=== PATIENT | female | born 1970 | race African-American/Black ===

== ENCOUNTER → 2017-06-02 | Day surgery (SDC) | payer OTHER ==
--- NOTE | 2017-06-02 11:14 | RAD REPORT ---
EXAM DESCRIPTION: US - AXILLA ONLY - 06/02/2017 10:21 am CLINICAL HISTORY: C50.812 COMPARISON: CT chest May 20, 2017. FINDINGS: Sonographic evaluation of the left axilla was performed to evaluate two small axillary lym ph nodes seen on the recent CT study. The patient had pain induced limited range of motion at the shoulder joint due to the recent surgery. This limited access to the axilla. Two small lymph nodes were seen near the lateral margin of the pe ctoralis musculature. Both lymph nodes showed a short axis dimension of 4-5 mm or less. Fatty lymph n ode alisha filled the majority of the volume and there was uniform thickness to the lymph node cortex. While the lymph nodes could be visualized. The patient has limited range of motion significantly limi koby access. The lymph nodes show benign imaging characteristics. Findings from the study were discussed with the patient at the time of the study. The patient request ed findings be relayed to Dr. oseguera on as well. IMPRESSION: 1. Two benign appearing left axillary lymph nodes were identifiable believed to be the c orrelates to the recent CT chest finding. 2. Given the benign appearance and patient limited range of motion, it was felt the lymph nodes could not be safely subjected to core biopsy.
== END ==
LOC: DS 09:34
PROVIDERS: ATTEND Radiology Radiation Oncology
DX: C50.812 Malignant neoplasm of overlapping sites of left female breast (principal); Z53.9 Procedure and treatment not carried out, unspecified reason
CPT/HCPCS: 76882

== ENCOUNTER 2017-11-23 17:33 | Emergency (ER) | payer OTHER ==
[2017-11-23] MEDS ORDERED: LORazepam 2 MG/ML VIAL ONE (18:03)
[2017-11-23 18:21] LABS: Absolute Lymphocytes (CBC) 0.6 K/uL (0.7-4.9); Absolute Monocytes 0.4 K/uL (0.1-1.3); Absolute Neutrophil 5.1 K/uL (1.8-8.0); Basophils % 0.2 % (0-1.3); Eosinophils % 0.4 % (0-4.4); Hematocrit 28.9 % (36.0-45.0); Lymphocytes % 10.1 % (15.3-44.8); MCH 26.4 pg (27.0-35.0); MPV 9.2 fL (7.6-11.3); Monocytes % 6.3 % (3.3-12.3); RBC Red Blood Cell Count 3.61 M/uL (3.86-4.86)
[2017-11-23 18:28] LABS: BUN Blood Urea Nitrogen 8 mg/dL (7-18); Bicarbonate 31 mmol/L (21-32); Glucose Level 113 mg/dL (74-106); Potassium 3.1 mmol/L (3.5-5.1); Sodium Level 143 mmol/L (136-145)
--- NOTE | 2017-11-23 19:21 | RAD REPORT ---
EXAM DESCRIPTION: CT - Chest For Pe Angio - 11/23/2017 7:11 pm CLINICAL HISTORY: Chest pain. DYSPNEA COMPARISON: Rad Therapy Fld Place Chest dated 06/18/2017 TECHNIQUE: CT angiogram of the pulmonary arteries was performed with MIP. All CT scans are performed using dose optimization technique as appropriate and may include automated exposure control or mA/KV adjustment according to patient size. FINDINGS: No evidence of pulmonary thromboembolism. No acute aortic finding demonstrated. The lungs are clear. Respiratory motion artifact is present. No significant pericardial or pleural fluid. No concerning bony finding. IMPRESSION: No evidence of pulmonary thromboembolism. No acute lung findings.
[2017-11-23] MEDS ORDERED: POTASSIUM CL SA 10 MEQ TAB PO ONE (19:34)
--- NOTE | 2017-11-23 20:01 | ER ---
Nurse's Notes [facility] Name: Ena Vega Age: 47 yrs Sex: Female : 1970 Arrival Date: 11/23/2017 Time: 17:34 Bed 6 Private MD: Diagnosis: Anxiety disorder, unspecified;Hyperventilation Presentation: 11/23 17:40 Presenting complaint: Patient states: I feel like i cant catch my breath, I recently sg had radiation for breast cancer and my left breast removed, i dont know if this is related to that or not. Transition of care: patient was not received from another setting of care. Onset of symptoms was November 23, 2017. Risk Assessment: Do you want to hurt yourself or someone else? Patient reports no desire to harm self or others. Care prior to arrival: None. 17:40 Method Of Arrival: Ambulatory 17:46 Acuity: ROLANDO 3 iw 18:08 Initial Sepsis Screen: Does the patient meet any 2 criteria? No. Patient's initial la1 sepsis screen is negative. Does the patient have a suspected source of infection? No. Patient's initial sepsis screen is negative. Triage Assessment: 18:41 General: Appears in no apparent distress. Respiratory: Reports. la1 Historical: - Allergies: 17:50 No Known Allergies; sg - PMHx: 17:50 Cancer, Breast; sg - PSHx: 17:50 Mastectomy, Left; sg - Immunization history:: Adult Immunizations up to date. - Social history:: Smoking status: Patient/guardian denies using tobacco. - Ebola Screening: : Patient negative for fever greater than or equal to 101.5 degrees Fahrenheit, and additional compatible Ebola Virus Disease symptoms Patient denies exposure to infectious person Patient denies travel to an Ebola-affected area in the 21 days before illness onset No symptoms or risks identified at this time. Screenin:07 Abuse screen: Denies threats or abuse. Nutritional screening: No deficits noted. la1 Tuberculosis screening: No symptoms or risk factors identified. Fall Risk None identified. Assessment: 18:07 General: Behavior is anxious. Pain: Denies pain. Neuro: Level of Consciousness is la1 awake, alert, obeys commands, Oriented to person, place, time, situation. Cardiovascular: Heart tones S1 S2 present Capillary refill < 3 seconds Patient's skin is warm and dry. Respiratory: Airway is patent Trachea midline Respiratory effort is even, unlabored, Respiratory pattern is regular, symmetrical, Breath sounds are clear bilaterally. GI: Abdomen is round non-distended. : No signs and/or symptoms were reported regarding the genitourinary system. 18:41 Reassessment: Patient is alert, oriented x 3, equal unlabored respirations, skin la1 warm/dry/pink. Patient states feeling better. Patient states symptoms have improved. Cardiovascular: Rhythm is regular. 19:45 General: Behavior is calm, cooperative, appropriate for age. Pain: Denies pain. Neuro: ea Level of Consciousness is awake, alert, obeys commands, Oriented to person, place, time, situation. Cardiovascular: Heart tones S1 S2 present Patient's skin is warm and dry. Respiratory: Airway is patent Respiratory effort is even, unlabored, Respiratory pattern is regular, symmetrical, Breath sounds are clear bilaterally. : No signs and/or symptoms were reported regarding the genitourinary system. Derm: Skin is pink, warm \T\ dry. 20:10 General: Appears in no apparent distress. comfortable, Behavior is calm, cooperative, aj appropriate for age. Pain: Denies pain. Neuro: Level of Consciousness is awake, alert, obeys commands, Oriented to person, place, time, situation, Appropriate for age. Respiratory: Airway is patent Respiratory effort is even, unlabored, Respiratory pattern is regular, symmetrical. Derm: Skin is intact, is healthy with good turgor, Skin is pink, warm \T\ dry. normal. Vital Signs: 17:50 Pulse 92; Resp 22; Pulse Ox 100% ; Pain 0/10; sg 18:18 BP 155 / 78; Pulse 84; Resp 20; Temp 97.6(TE); Pulse Ox 98% on 2 lpm NC; la1 19:57 BP 132 / 82; Pulse 74; Resp 16; Pulse Ox 98% on R/A; mt ED Course: 17:34 Patient arrived in ED. mr 17:39 Yash Flores RN is Primary Nurse. la1 17:46 Triage completed. iw 17:50 Arm band placed on. sg 17:51 Sandrita Whalen FNP-C is [facility]. kb 17:51 Ashwin Adams MD is Attending Physician. kb 17:51 Patient pt placed on NC at 2 lpm for comfort, pt reports improved respirations. sg 18:06 Inserted saline lock: 22 gauge in right wrist, using aseptic technique. Blood collected.la1 18:08 Call light in reach. Side rails up X 1. la1 18:41 Inserted saline lock: 18 gauge in right antecubital area, using aseptic technique. la1 19:11 CT Chest For PE Angio In Process Unspecified. EDMS 20:10 No provider procedures requiring assistance completed. IV discontinued, intact, aj bleeding controlled, No redness/swelling at site. Pressure dressing applied. Administered Medications: 18:10 Not Given (Other Intervention Used): Ativan 1 mg IM once la1 18:10 Drug: Ativan 1 mg Route: IVP; Site: right wrist; la1 18:42 Follow up: Response: Anxiety decreased la1 19:29 Drug: Potassium Chloride 40 mEq Route: PO; ea 19:53 Follow up: Response: No adverse reaction ea Outcome: 20:00 Discharge ordered by MD. kb 20:10 Discharged to home ambulatory, with family. aj 20:10 Condition: good 20:10 Discharge instructions given to patient, family, Instructed on discharge instructions, follow up and referral plans. Demonstrated understanding of instructions, follow-up care. 20:12 Patient left the ED. aj Signatures: Dispatcher [employer] EDMS Sandrita Whalen, CHILD CARE GROUP LEADER-C CHILD CARE GROUP LEADER-Haseeb Luna, RN Lidia Stephenson, RN Mckenna Davis Irene RN Yash Zhu RN RN la1 Thompson, Moriah mt Antunez, Elena, RN RN ea Corrections: (The following items were deleted from the chart) 18:18 18:18 BP 155 / 78; Pulse 84bpm; Resp 20bpm; Pulse Ox 98% 2 lpm Nasal Cannula; la1 la1
--- NOTE | 2017-11-23 20:01 | EDPHYS ---
Physician Documentation [facility] Name: Ena Vega Age: 47 yrs Sex: Female : 1970 Arrival Date: 11/23/2017 Time: 17:34 Bed 6 Private MD: ED Physician Ashwin Adams HPI: 11/23 19:45 This 47 yrs old Black Female presents to ER via Ambulatory with complaints of Shortness kb Of Breath. 19:45 The patient has shortness of breath at rest. Onset: The symptoms/episode began/occurred kb just prior to arrival. Duration: The symptoms are continuous. The patient's shortness of breath has no apparent modifying factors. Associated signs and symptoms: The patient has no apparent associated signs or symptoms. Severity of symptoms: At their worst the symptoms were moderate in the emergency department the symptoms are unchanged. The patient has experienced similar episodes in the past, a few times. The patient has not recently seen a physician. Pt states "I can't breathe." Appears very anxious. Pt reports history of anxiety. Recent breast cancer with mastectomy. Historical: - Allergies: 17:50 No Known Allergies; sg - PMHx: 17:50 Cancer, Breast; sg - PSHx: 17:50 Mastectomy, Left; sg - Immunization history:: Adult Immunizations up to date. - Social history:: Smoking status: Patient/guardian denies using tobacco. - Ebola Screening: : Patient negative for fever greater than or equal to 101.5 degrees Fahrenheit, and additional compatible Ebola Virus Disease symptoms Patient denies exposure to infectious person Patient denies travel to an Ebola-affected area in the 21 days before illness onset No symptoms or risks identified at this time. ROS: 19:45 Constitutional: Negative for fever, chills, and weight loss, Cardiovascular: Negative kb for chest pain, palpitations, and edema, Abdomen/GI: Negative for abdominal pain, nausea, vomiting, diarrhea, and constipation, Back: Negative for injury and pain, : Negative for injury, bleeding, discharge, and swelling, MS/Extremity: Negative for injury and deformity, Skin: Negative for injury, rash, and discoloration, Neuro: Negative for headache, weakness, numbness, tingling, and seizure. 19:45 Respiratory: Positive for shortness of breath, Negative for cough, dyspnea on exertion, hemoptysis, orthopnea, pleurisy, sputum production, wheezing. 19:45 Psych: Positive for anxiety. Exam: 19:50 Head/Face: Normocephalic, atraumatic. Chest/axilla: Normal chest wall appearance and kb motion. Nontender with no deformity. No lesions are appreciated. Cardiovascular: Regular rate and rhythm with a normal S1 and S2. No gallops, murmurs, or rubs. Normal PMI, no JVD. No pulse deficits. Abdomen/GI: Soft, non-tender, with normal bowel sounds. No distension or tympany. No guarding or rebound. No evidence of tenderness throughout. Skin: Warm, dry with normal turgor. Normal color with no rashes, no lesions, and no evidence of cellulitis. MS/ Extremity: Pulses equal, no cyanosis. Neurovascular intact. Full, normal range of motion. Neuro: Awake and alert, GCS 15, oriented to person, place, time, and situation. Cranial nerves II-XII grossly intact. Motor strength 5/5 in all extremities. Sensory grossly intact. Cerebellar exam normal. Normal gait. 19:50 Constitutional: The patient appears alert, awake, anxious. 19:50 Respiratory: the patient does not display signs of respiratory distress, Respirations: tachypnea, Breath sounds: are clear throughout. Vital Signs: 17:50 Pulse 92; Resp 22; Pulse Ox 100% ; Pain 0/10; sg 18:18 BP 155 / 78; Pulse 84; Resp 20; Temp 97.6(TE); Pulse Ox 98% on 2 lpm NC; la1 19:57 BP 132 / 82; Pulse 74; Resp 16; Pulse Ox 98% on R/A; mt MDM: 17:51 Patient medically screened. kb 19:49 Data reviewed: vital signs, nurses notes. Data interpreted: Pulse oximetry: on room air kb is 98 %. Interpretation: normal. Counseling: I had a detailed discussion with the patient and/or guardian regarding: the historical points, exam findings, and any diagnostic results supporting the discharge/admit diagnosis, lab results, radiology results, the need for outpatient follow up, a family practitioner, to return to the emergency department if symptoms worsen or persist or if there are any questions or concerns that arise at home. 20:01 Response to treatment: the patient's symptoms have resolved after treatment, the kb patient is not short of breath. 11/23 17:56 Order name: CBC with Diff; Complete Time: 18:26 kb 11/23 17:56 Order name: Basic Metabolic Panel; Complete Time: 18:29 kb 11/23 19:44 Order name: Urine Dipstick--Ancillary (enter results) ms 11/23 19:44 Order name: Urine --Ancillary (enter results) ms 11/23 19:44 Order name: Urine Dipstick-Ancillary EDMS 11/23 19:44 Order name: Urine --Ancillary EDMS 11/23 17:56 Order name: IV Start; Complete Time: 18:10 kb 11/23 17:57 Order name: CT Chest For PE Angio; Complete Time: 19:33 kb Administered Medications: 18:10 Not Given (Other Intervention Used): Ativan 1 mg IM once la1 18:10 Drug: Ativan 1 mg Route: IVP; Site: right wrist; la1 18:42 Follow up: Response: Anxiety decreased la1 19:29 Drug: Potassium Chloride 40 mEq Route: PO; ea 19:53 Follow up: Response: No adverse reaction ea Disposition: 11/23/17 20:00 Discharged to Home. Impression: Anxiety disorder, unspecified, Hyperventilation. - Condition is Stable. - Discharge Instructions: Panic Attacks, [id number]. - Medication Reconciliation Form, Thank You Letter, Antibiotic Education, Prescription Opioid Use form. - Follow up: Private Physician; When: 2 - 3 days; Reason: Recheck today's complaints, Continuance of care, Re-evaluation by your physician. Follow up: Emergency Department; When: As needed; Reason: Worsening of condition. Addendum: 12/01/2017 16:39 Co-signature as Attending Physician, Ashwin Adams MD. g s Signatures: Dispatcher [employer] EDMS Sandrita Whalen, CROWN POUNCER-C CROWN POUNCER-Ckb Haseeb Blackmon, RN Lidia Stephenson RN Yash Loyd RN RN la1 Antunez, Elena, RN RN ea Starr, Gregory, MD MD gs Corrections: (The following items were deleted from the chart) 11/23 20:12 20:00 11/23/2017 20:00 Discharged to Home. Impression: Anxiety disorder, unspecified; aj Hyperventilation. Condition is Stable. Forms are Medication Reconciliation Form, Thank You Letter, Antibiotic Education, Prescription Opioid Use. Follow up: Private Physician; When: 2 - 3 days; Reason: Recheck today's complaints, Continuance of care, Re-evaluation by your physician. Follow up: Emergency Department; When: As needed; Reason: Worsening of condition. kb
[2017-11-23 20:30] LABS: Urine Blood NEGATIVE (NEG); Urine Glucose NEGATIVE (NEG); Urine Protein 1+ (NEG); Urine Specific Gravity 1.015 (1.005-1.030); Urine pH >8.5 (5.0-7.0)
== END 2017-11-23 20:12 | disposition home or self-care (01) ==
LOC: ER 17:33
DX: R06.4 Hyperventilation (principal); Z85.3 Personal history of malignant neoplasm of breast; Z90.12 Acquired absence of left breast and nipple
CPT/HCPCS: 36415; 71275; 80048; 81003; 81025; 85025; 96374; 99284; Q9967

== ENCOUNTER 2017-11-24 06:49 | Observation (INO) | payer OTHER ==
[2017-11-24] MEDS ORDERED: hydrOXYzine HCl 50 MG/ML VIAL IM ONE (07:53)
[2017-11-24 07:56] LABS: Protime INR 1.15
[2017-11-24 08:32] LABS: Absolute Lymphocytes (CBC) 0.7 K/uL (0.7-4.9); Absolute Monocytes 0.4 K/uL (0.1-1.3); Absolute Neutrophil 3.7 K/uL (1.8-8.0); Basophils % 0.7 % (0-1.3); Eosinophils % 0.9 % (0-4.4); Hematocrit 29.6 % (36.0-45.0); Lymphocytes % 13.8 % (15.3-44.8); MCH 26.3 pg (27.0-35.0); MCV 80.7 fL (80-100); MPV 9.4 fL (7.6-11.3); Monocytes % 8.4 % (3.3-12.3); RBC Red Blood Cell Count 3.67 M/uL (3.86-4.86)
[2017-11-24 08:52] LABS: ALT/SGPT 22 U/L (12-78); AST/SGOT 26 U/L (15-37); Alkaline Phosphatase 62 U/L (45-117); BUN Blood Urea Nitrogen 6 mg/dL (7-18); Bicarbonate 22 mmol/L (21-32); Bilirubin Direct 0.1 mg/dL (0-0.2); Bilirubin Total 0.4 mg/dL (0.2-1.0); Glucose Level 89 mg/dL (74-106); NT PRO-BNP 135 pg/mL (<125); Potassium 3.9 mmol/L (3.5-5.1); Protein, Total 8.3 g/dL (6.4-8.2); Sodium Level 142 mmol/L (136-145); Troponin (Emerg Dept Use Only) 0.04 ng/mL (0.0-0.045)
--- NOTE | 2017-11-24 09:43 | RAD REPORT ---
EXAM DESCRIPTION: RAD - Chest Single View - 11/24/2017 9:21 am CLINICAL HISTORY: SOB Chest pain. COMPARISON: Chest Single View dated 04/24/2017; Chest For Pe Angio dated 11/23/2017 FINDINGS: Portable technique limits examination quality. The lungs are grossly clear. The heart is normal in size. No displaced fractures. IMPRESSION: No acute intrathoracic process suspected.
--- NOTE | 2017-11-24 10:41 | ER ---
Nurse's Notes [facility] Name: Ena Vega Age: 47 yrs Sex: Female : 1970 Arrival Date: 11/24/2017 Time: 06:49 Bed 19 Private MD: Diagnosis: Shortness of breath;Abnormal electrocardiogram [ECG] [EKG] Presentation: 11/24 06:56 Presenting complaint: Patient states: "I feel like I can't breathe again"; Patient lp1 states ER visit last night for same symptoms, states Ativan helped; Patient noted to be pacing, states she can't sit still. Transition of care: patient was not received from another setting of care. Onset of symptoms was November 24, 2017 at 03:30. Risk Assessment: Do you want to hurt yourself or someone else? Patient reports no desire to harm self or others. Initial Sepsis Screen: Does the patient meet any 2 criteria? No. Patient's initial sepsis screen is negative. Does the patient have a suspected source of infection? No. Patient's initial sepsis screen is negative. Care prior to arrival: None. 06:56 Method Of Arrival: Ambulatory lp1 06:56 Acuity: ROLANDO 3 lp1 Triage Assessment: 07:09 General: Appears in no apparent distress. uncomfortable, Behavior is calm, cooperative, hj appropriate for age. Pain: Denies pain. EENT: No signs and/or symptoms were reported regarding the EENT system. Neuro: Level of Consciousness is awake, alert, obeys commands, Oriented to person, place, time, situation, Appropriate for age. Cardiovascular: Capillary refill < 3 seconds Patient's skin is warm and dry. Respiratory: Reports labored breathing Onset: The symptoms/episode began/occurred yesterday, the patient has mild shortness of breath. GI: No signs and/or symptoms were reported involving the gastrointestinal system. : No signs and/or symptoms were reported regarding the genitourinary system. Derm: No signs and/or symptoms reported regarding the dermatologic system. Musculoskeletal: No signs and/or symptoms reported regarding the musculoskeletal system. COMPENSATION SPECIALIST: 07:11 LMP N/A - Irregular menses hj Historical: - Allergies: 06:59 No Known Allergies; lp1 - Home Meds: 06:59 None [Active]; lp1 - PMHx: 06:59 Cancer, Breast; lp1 - Immunization history:: Adult Immunizations up to date. - Social history:: Smoking status: Patient/guardian denies using tobacco. - Ebola Screening: : No symptoms or risks identified at this time. Screenin:59 Abuse screen: Denies threats or abuse. Denies injuries from another. Nutritional lp1 screening: No deficits noted. Tuberculosis screening: No symptoms or risk factors identified. Fall Risk None identified. Assessment: 07:00 Reassessment: see triage for assessment;. hj 07:09 Pain: Denies pain. Cardiovascular: Rhythm is regular. Respiratory: Airway is patent hj Respiratory effort is even, unlabored, Respiratory pattern is regular, symmetrical, Breath sounds are clear bilaterally. 08:44 Reassessment: Patient and/or family updated on plan of care and expected duration. Pain hj level reassessed. Patient is alert, oriented x 3, equal unlabored respirations, skin warm/dry/pink. after the dose of hydroxyzine; Patient states feeling better. Patient states symptoms have improved. 09:21 Reassessment: Patient and/or family updated on plan of care and expected duration. Pain hj level reassessed. Patient is alert, oriented x 3, equal unlabored respirations, skin warm/dry/pink. awaiting XRAY results';. 10:10 Reassessment: Patient and/or family updated on plan of care and expected duration. Pain hj level reassessed. Patient is alert, oriented x 3, equal unlabored respirations, skin warm/dry/pink. Patient states feeling better. Patient states symptoms have improved. 11:17 Reassessment: Patient and/or family updated on plan of care and expected duration. Pain hj level reassessed. Patient is alert, oriented x 3, equal unlabored respirations, skin warm/dry/pink. awaiting for room placement; requested ROHITH Perry to start IV using US;. 12:13 Reassessment: 18g R EJ;. hj Vital Signs: 06:58 BP 156 / 89; Pulse 105; Resp 22; Temp 98.4(O); Pulse Ox 100% on R/A; Weight 74.84 kg; lp1 Height 5 ft. 5 in. (165.10 cm); 07:30 BP 157 / 90; Pulse 100; Resp 18; Pulse Ox 100% on R/A; hj 08:45 BP 137 / 82; Pulse 62; Resp 18; Pulse Ox 100% on R/A; hj 09:22 BP 131 / 75; Pulse 65; Resp 18; Pulse Ox 100% on R/A; hj 10:30 BP 130 / 74; Pulse 66; Resp 18; Pulse Ox 100% on R/A; hj 11:18 BP 134 / 72; Pulse 65; Resp 18; Pulse Ox 100% on R/A; hj 12:14 BP 135 / 70; Pulse 67; Resp 18; Pulse Ox 100% on R/A; hj 06:58 Body Mass Index 27.46 (74.84 kg, 165.10 cm) lp1 ED Course: 06:49 Patient arrived in ED. ds1 06:51 Orlando Yang PA is PHCP. jr8 06:51 Nacho Hendricks MD is Attending Physician. jr8 06:58 Triage completed. lp1 06:58 Arm band placed on left wrist. lp1 07:00 Atrhur Bridges RN is Primary Nurse. hj 07:00 Report received from MIKIE Castrejon. hj 07:10 Patient has correct armband on for positive identification. Bed in low position. Call hj light in reach. Side rails up X 1. Adult w/ patient. 07:55 EKG done, by thermoplastic technician. reviewed by Orlando NEWBERRY. at1 08:06 Radiology exam delayed due to IV insertion attempt and/or patient not having ls3 appropriate IV at this time. 09:22 XRAY Chest (1 view) In Process Unspecified. EDMS 10:40 Craidad Rios MD is Hospitalizing Provider. jr8 12:14 Inserted saline lock: 18 gauge in right EJ, using aseptic technique. ,using aseptic hj technique. ROHITH Yang. 12:24 No provider procedures requiring assistance completed. Patient admitted, IV remains in hj place. intact. Administered Medications: 07:29 Not Given (Physician Discretion): Ativan 1 mg IVP once jr8 07:30 CANCELLED (Physician Discretion): Benadryl 12.5 mg IVP once jr8 07:55 Not Given (not avaialble): Benadryl 25 mg IVP once hj 07:55 Drug: hydrOXYzine 25 mg Route: PO; hj 09:46 Follow up: Response: No adverse reaction; Anxiety decreased hj 12:21 Not Given (Patient Refused): Ativan 0.5 mg IVP once hj Outcome: 10:41 Decision to Hospitalize by Provider. annika 12:24 Admitted to Med/surg accompanied by nurse, family with patient, via wheelchair, room hj 205, with chart, Report called to MIKIE Booker 12:24 Condition: stable 12:24 Instructed on the need for admit, Demonstrated understanding of instructions. 12:46 Patient left the ED. Signatures: Dispatcher [employer] EDNH Angelique Parsons ds1 Eli Bynum, RN RN lp1 Orlando Yang, PA PA jr8 Lidia Vargas, oil well perforator operator EKG Tat1 Arthur Bridges RN RN Alirio Quintero ls3
--- NOTE | 2017-11-24 10:42 | EDPHYS ---
Physician Documentation [facility] Name: Ena Vega Age: 47 yrs Sex: Female : 1970 Arrival Date: 11/24/2017 Time: 06:49 Bed 19 Private MD: ED Physician Nacho Hendricks HPI: 11/24 08:02 This 47 yrs old Black Female presents to ER via Ambulatory with complaints of Breathing jr8 Difficulty. 08:02 The patient has shortness of breath at rest. Onset: The symptoms/episode began/occurred jr8 acutely, yesterday. Duration: The symptoms are continuous. The patient's shortness of breath has no apparent modifying factors. Associated signs and symptoms: The patient has no apparent associated signs or symptoms. Severity of symptoms: At their worst the symptoms were moderate in the emergency department the symptoms are unchanged. The patient has not experienced similar symptoms in the past. The patient has been recently seen by a physician:. Patient seen yesterday in ED for shortness of breath. Stated that it woke her up all of a sudden. Recent breast cancer history with surgery and radiation. Blood work and CT done with no acute finding. Ativan was given in which she stated that it help a lot. After it wore off started to have shortness of breath again. Only other medication taken at home was promethazine . 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 - Social history:: Smoking status: Patient/guardian denies using tobacco. - Ebola Screening: : No symptoms or risks identified at this time. ROS: 08:02 Eyes: Negative for injury, pain, redness, and discharge, ENT: Negative for injury, jr8 pain, and discharge, Neck: Negative for injury, pain, and swelling, Cardiovascular: Negative for chest pain, palpitations, and edema, Abdomen/GI: Negative for abdominal pain, nausea, vomiting, diarrhea, and constipation, Back: Negative for injury and pain, MS/Extremity: Negative for injury and deformity, Skin: Negative for injury, rash, and discoloration, Neuro: Negative for headache, weakness, numbness, tingling, and seizure. 08:02 Respiratory: Positive for shortness of breath, Negative for cough, dyspnea on exertion, orthopnea, sputum production, wheezing. Exam: 08:02 Eyes: Pupils equal round and reactive to light, extra-ocular motions intact. Lids and jr8 lashes normal. Conjunctiva and sclera are non-icteric and not injected. Cornea within normal limits. Periorbital areas with no swelling, redness, or edema. ENT: Nares patent. No nasal discharge, no septal abnormalities noted. Tympanic membranes are normal and external auditory canals are clear. Oropharynx with no redness, swelling, or masses, exudates, or evidence of obstruction, uvula midline. Mucous membranes moist. Neck: Trachea midline, no thyromegaly or masses palpated, and no cervical lymphadenopathy. Supple, full range of motion without nuchal rigidity, or vertebral point tenderness. No Meningismus. Cardiovascular: Regular rate and rhythm with a normal S1 and S2. No gallops, murmurs, or rubs. Normal PMI, no JVD. No pulse deficits. Abdomen/GI: Soft, non-tender, with normal bowel sounds. No distension or tympany. No guarding or rebound. No evidence of tenderness throughout. Back: No spinal tenderness. No costovertebral tenderness. Full range of motion. Skin: Warm, dry with normal turgor. Normal color with no rashes, no lesions, and no evidence of cellulitis. MS/ Extremity: Pulses equal, no cyanosis. Neurovascular intact. Full, normal range of motion. Neuro: Awake and alert, GCS 15, oriented to person, place, time, and situation. Cranial nerves II-XII grossly intact. Motor strength 5/5 in all extremities. Sensory grossly intact. Cerebellar exam normal. Normal gait. 08:02 Respiratory: mild respiratory distress is noted, Respirations: tachypnea, that is mild, Breath sounds: are clear throughout, no bronchial sounds, no decreased breath sounds, no rales, rhonchi, no stridor, no wheezing. 08:06 ECG was reviewed by the Attending Physician. [facility], [place] Vital Signs: 06:58 BP 156 / 89; Pulse 105; Resp 22; Temp 98.4(O); Pulse Ox 100% on R/A; Weight 74.84 kg; lp1 Height 5 ft. 5 in. (165.10 cm); 07:30 BP 157 / 90; Pulse 100; Resp 18; Pulse Ox 100% on R/A; hj 08:45 BP 137 / 82; Pulse 62; Resp 18; Pulse Ox 100% on R/A; hj 09:22 BP 131 / 75; Pulse 65; Resp 18; Pulse Ox 100% on R/A; hj 10:30 BP 130 / 74; Pulse 66; Resp 18; Pulse Ox 100% on R/A; hj 11:18 BP 134 / 72; Pulse 65; Resp 18; Pulse Ox 100% on R/A; hj 12:14 BP 135 / 70; Pulse 67; Resp 18; Pulse Ox 100% on R/A; hj 06:58 Body Mass Index 27.46 (74.84 kg, 165.10 cm) lp1 MDM: 06:51 Patient medically screened. jr8 08:05 Differential diagnosis: Anemia Anxiety Reaction CHF exacerbation, Myocardial Infarction jr8 pneumonia, Pneumothorax pulmonary edema, Pulmonary Embolism Sepsis. Data reviewed: vital signs, nurses notes, old medical records, CT PE Negative. Mild anemia lab test result(s), EKG, radiologic studies, plain films. Data interpreted: Pulse oximetry: on room air is 100 %. Interpretation: normal. 10:18 ED course: abnormal ECG findings. Discussed this with hospitalist to see if we can jr8 either get her immediate cardiology consult or be admitted for r/o. Dr. Rios will see her and call cardiology. Patient only with shortness of breath which has resolved after medication. No chest pain . 10:40 ED course: Will put in and r/o after talking with Dr. Rios and her seeing patient . 11/24 07:25 Order name: Basic Metabolic Panel; Complete Time: 09:04 11/24 07:25 Order name: CBC with Diff; Complete Time: 08:48 11/24 07:25 Order name: LFT's; Complete Time: 09:04 11/24 07:25 Order name: Magnesium; Complete Time: 09:04 11/24 07:25 Order name: NT PRO-BNP; Complete Time: 09:04 11/24 07:25 Order name: PT-INR; Complete Time: 08:02 11/24 07:25 Order name: Troponin (emerg Dept Use Only); Complete Time: 09:04 11/24 07:25 Order name: XRAY Chest (1 view); Complete Time: 09:47 11/24 07:25 Order name: EKG; Complete Time: :11/24 07:25 Order name: Cardiac monitoring; Complete Time: 07:25 11/24 07:25 Order name: EKG - Nurse/Tech; Complete Time: 08:10 11/24 07:25 Order name: IV Saline Lock; Complete Time: 12:21 11/24 07:25 Order name: Labs collected and sent; Complete Time: 08:11/24 07:25 Order name: O2 Per Protocol; Complete Time: :11/24 07:25 Order name: O2 Sat Monitoring; Complete Time: EC:06 Rate is 75 beats/min. Rhythm is regular, Normal Sinus Rhythm. QRS [place] is Normal. [place] jr8 interval is normal at 156 msec. QRS interval is normal at 76 msec. QT interval is normal at 437 msec. No Q waves. T waves are Inverted in leads V1, V2, V3, V4. No ST changes noted. Clinical impression: NSR w/ Non-specific ST/T Changes. Interpreted by me. Reviewed by me. Administered Medications: 07:29 Not Given (Physician Discretion): Ativan 1 mg IVP once jr8 07:30 CANCELLED (Physician Discretion): Benadryl 12.5 mg IVP once jr8 07:55 Not Given (not avaialble): Benadryl 25 mg IVP once 07:55 Drug: hydrOXYzine 25 mg Route: PO; 09:46 Follow up: Response: No adverse reaction; Anxiety decreased 12:21 Not Given (Patient Refused): Ativan 0.5 mg IVP once hj Disposition: 11/24/17 10:41 Hospitalization ordered by Caridad Rios for Observation. Preliminary diagnosis are Shortness of breath, Abnormal electrocardiogram [ECG] [EKG]. - Bed requested for Telemetry/MedSurg (observation). - Status is Observation. hj - Condition is Stable. - Problem is new. - Symptoms have improved. UTI on Admission? No Addendum: 11/26/2017 07:25 Co-signature as Attending Physician, Nacho Hendricks MD I agree with the assessment and c trejo plan of care. Signatures: Dispatcher [employer] Kinjal Lee RN RN dw Nacho Hendricks MD MD cha Pena, Laura RN RN lp1 Orlando Yang PA PA jr8 Arthur Bridges RN RN hj Corrections: (The following items were deleted from the chart) 11/24 07:30 07:29 Benadryl 12.5 mg IVP once ordered. jr8 jr8 11:42 10:41 Hospitalization Ordered by Caridad Rios MD for Observation. Preliminary dw diagnosis is Shortness of breath; Abnormal electrocardiogram [ECG] [EKG]. Bed requested for Telemetry/MedSurg (observation). Status is Observation. Condition is Stable. Problem is new. Symptoms have improved. UTI on Admission? No. jr8 12:46 11:42 11/24/2017 10:41 Hospitalization Ordered by Caridad Rios MD for Observation. hj Preliminary diagnosis is Shortness of breath; Abnormal electrocardiogram [ECG] [EKG]. Bed requested for Telemetry/MedSurg (observation). Status is Observation. Condition is Stable. Problem is new. Symptoms have improved. UTI on Admission? No. dw
[2017-11-24] MEDS ORDERED: ONDANSETRON 4 MG/2 ML VIAL IV PRN (12:57)
[2017-11-24] MEDS ORDERED: ACETAMINOPHEN 500 MG TAB PO PRN (12:57)
--- NOTE | 2017-11-24 13:15 | EKG ---
Test Date: 2017-11-24 Test Time: 07:44:35 Military Technician: DAMION MEASUREMENT RESULTS: Intervals: Rate: 75 MN: 156 QRSD: 76 QT: 392 QTc: 437 [place]: P: 54 MN: 156 QRS: 16 T: 96 INTERPRETIVE STATEMENTS: Normal sinus rhythm ST & T wave abnormality, consider anterolateral ischemia Abnormal ECG Compared to ECG 04/24/2017 23:02:20 Possible ischemia now present ST (T wave) deviation still present Electronically Signed On 11-24-17 13:14:53 CDT by Vance Eli
--- NOTE | 2017-11-24 14:57 | P.HP ---
Certification for Inpatient Patient admitted to: Observation With expected LOS: <2 Midnights Patient will require the following post-hospital care: None Practitioner: I am a practitioner with admitting privileges, knowledge of patient current condition, hospital course, and medical plan of care. Services: Services provided to patient in accordance with Admission requirements found in Title 42 Section 412.3 of the Code of Federal Regulations Patient History Date of Service: 11/24/17 Reason for admission: Dyspnea with chest discomfort History of Present Illness: This is a 47-year-old female with no significant past medical history who started having some discomfort in her chest last night and had and some shortness of breath as well. Patient stated that she came to the medication which helped her shortness of breath and she was discharged home under stable condition. However this morning patient started noticing that she was having some chest discomfort again this morning along with dyspnea and thus decided to come to the ER. All the lab work and imaging studies in the ER were within normal limits except the EKG was concerning was inversion of the T waves of in V1 to V3 leads. Which has been changed from her previous EKG. The patient thus was admitted for further workup Allergies No Known Allergies Allergy (Verified 04/30/17 14:39) Home medications list reviewed: Yes Home Medications: NK [No Home Meds] 11/24/17 - Past Medical/Surgical History Has patient received pneumonia vaccine in the past: Yes Diabetic: No -: Fibroadenoma left breast-benign -: breast biopsy left - Family History Family History: Reviewed- Non-Contributory - Family History Father -: Hypertension, Diabetes Mother -: Hypertension, Diabetes, Cancer - Social History Smoking Status: Never smoker Alcohol use: Yes CD- Drugs: No Caffeine use: No Place of Residence: Home Review of Systems 10-point ROS is otherwise unremarkable Physical Examination - Vital Signs Temperature: 98 F Blood Pressure: 127/76 Pulse: 65 Respirations: 18 Pulse Ox (%): 98 - Physical Exam General: Alert, In no apparent distress HEENT: Atraumatic, PERRLA, Mucous membr. moist/pink, EOMI, Sclerae nonicteric Neck: Supple, 2+ carotid pulse no bruit, No LAD, Without JVD or thyroid abnormality Respiratory: Clear to auscultation bilaterally, Normal air movement Cardiovascular: Regular rate/rhythm, Normal S1 S2 Gastrointestinal: Normal bowel sounds, No tenderness Musculoskeletal: No tenderness Integumentary: No rashes Neurological: Normal gait, Normal speech, Normal strength at 5/5 x4 extr, Normal tone, Normal affect Lymphatics: No axilla or inguinal lymphadenopathy - Studies Laboratory Data (last 24 hrs) 11/24/17 08:12: WBC 4.9 D, Hgb 9.6 L, Hct 29.6 L, Plt Count 262 11/24/17 08:12: Sodium 142, Potassium 3.9, BUN 6 L, Creatinine 0.70, Glucose 89 , Magnesium 2.0, Total Bilirubin 0.4, AST 26, ALT 22, Alkaline Phosphatase 62 11/24/17 07:40: PT 13.6 H, INR 1.15 Assessment and Plan - Problems (Diagnosis) (1) Chest pain Current Visit: Yes Status: Acute Plan: Atypical Chest discomfort. Most Likely Anxiety vs allergies -Will get Troponin x 2 and EKG -Will ECHO and stress -ACS R/O -ACS medication Qualifiers: Chest pain type: other chest pain Qualified Code(s): R07.89 - Other chest pain; R07.8 - Other chest pain (2) Breast cancer Current Visit: No Status: Chronic Qualifiers: Breast location: unspecified site of breast Estrogen receptor status: unspecified Patient sex: female Laterality: unspecified laterality Qualified Code(s): C50.919 - Malignant neoplasm of unspecified site of unspecified female breast Discharge Plan: Home Plan to discharge in: 48 Hours - Advance Directives Does patient have a Living Will: No Does patient have a Durable POA for Healthcare: No - Code Status/Comfort Care Code Status Assessed: Yes Critical Care: No
[2017-11-24] MEDS ORDERED: ALPRAZOLAM 0.25 MG TABLET PO ONE (21:31)
[2017-11-24 22:04] LABS: Urine Appearance CLEAR; Urine Bilirubin NEGATIVE (NEG); Urine Blood NEGATIVE (NEG); Urine Color YELLOW; Urine Glucose NEGATIVE (NEG); Urine Protein TRACE (NEG); Urine pH 6.5 (5.0-7.0)
[2017-11-24 23:24] LABS: Urine Microscopic Reflex ORDER UMIC
[2017-11-24 23:50] LABS: Urine Bacteria 20-50 /HPF (<20); Urine Culture Reflex Order REFLEXED; Urine Mucus 2+ /HPF (NONE SEEN); Urine RBC <5 /HPF (NONE SEEN)
[2017-11-25 05:31] LABS: BUN Blood Urea Nitrogen 9 mg/dL (7-18); Bicarbonate 23 mmol/L (21-32); Glucose Level 86 mg/dL (74-106); Potassium 3.5 mmol/L (3.5-5.1); Sodium Level 141 mmol/L (136-145)
[2017-11-25 05:51] LABS: Absolute Lymphocytes (CBC) 0.7 K/uL (0.7-4.9); Absolute Monocytes 0.3 K/uL (0.1-1.3); Absolute Neutrophil 1.2 K/uL (1.8-8.0); Eosinophils % 5.1 % (0-4.4); Hematocrit 28.2 % (36.0-45.0); Lymphocytes % 31.4 % (15.3-44.8); MCH 26.3 pg (27.0-35.0); MCV 80.7 fL (80-100); Monocytes % 10.9 % (3.3-12.3); RBC Red Blood Cell Count 3.49 M/uL (3.86-4.86)
[2017-11-25 06:19] LABS: Blood Morphology Comment NOTED (NOT SEEN); Platelet Estimate ADEQ; Poikilocytosis 1+; Polychromasia 1+; Urine White Blood Cell Casts OK
[2017-11-25] MEDS ORDERED: REGADENOSON 0.4 MG/5 ML SYR IV ONE (07:48)
[2017-11-25] MEDS ORDERED: ASPIRIN EC 81 MG TAB PO SCH (09:00)
--- NOTE | 2017-11-25 12:00 | RAD REPORT ---
EXAM DESCRIPTION: NM - Rest Stress Cardiac Imaging - 11/25/2017 11:43 am CLINICAL HISTORY: abnormal ECG with shortess of breath Chest pain. COMPARISON: No comparisons TECHNIQUE: The patient was administered approximately 10mCi of Tc 99m Sestamibi prior to resting SPE CT imaging of the heart. The patient was then administered approximately 30 mCi of Tc 99m Sestamibi f ollowing exercise or pharmacologic stress. Multiplanar SPECT images were reviewed. FINDINGS: No stress induced ischemic defect is seen to suggest stress induced ischemia. No fixed def ect is seen to suggest hibernating myocardium or scarred myocardium. The end diastolic volume is 90 ml, the end systolic volume is 31 ml, and the ejection fraction is 66 %. IMPRESSION: No stress induced ischemia.
--- NOTE | 2017-11-25 12:10 | TREADPHA ---
DX: ABNORMAL ELECTROCARDIOGRAM WITH SHORTNESS OF BREATH Date of Study: 11/25/2017 Ht: 5 5 Wt: 165 lb 0 oz Consulting Physician: RUPESH COVINGTON MEDICATIONS: TYLENOL, ASPIRIN, ZOFRAN HISTORY: 47 YEAR OLD FEMALE HERE FOR ABNORMAL ELECTROCARDIOGRAM WITH SHORTNESS OF BREATH. HISTORY OF BREAST CANCER. PHYSICIAL EXAMINATION: RESTING B.P.: 155/77 RESTING H.R.: 78 RESTING EKG: SINUS, ANTERIOR T WAVE INVERSION PROTOCOL: LEXISCAN EXERCISE TIME: 3:30 B.P. AT [place] STRESS: 156/95 IMPRESSION: LEXISCAN STRESS TEST PERFORMED. CARDIOLITE INJECTED PER PROTOCOL. NO ARRHYTHMIAS NOTED. DENIES ANY CHEST PAIN. SEE NUCLEAR MEDICINE REPORT. NON-DIAGNOSTIC ELECTROCARDIOGRAM WITH LEXISCAN STRESS.
--- NOTE | 2017-11-25 12:22 | ECHO ---
HEIGHT: 5 ft 5 in WEIGHT: 165 lb 0 oz DATE OF STUDY: 11/25/[address]: Eric Yang 2-DIMENSIONAL: YES M.MODE: YES DOPPLER: YES COLOR FLOW: YES TDS: NO PORTABLE: NO DEFINITY: NO BUBBLE STUDY: NO DIAGNOSIS: ABNORMAL EKG WITH SHORTNESS OF BREATH CARDIAC HISTORY: CATHERIZATION: NO SURGERY: NO PROSTHETIC VALVE: NO PACEMAKER: NO MEASUREMENTS (cm) DIASTOLIC (NORMALS) SYSTOLIC (NORMALS) IVSd 1.0 (0.6-1.2) LA Diam 3.8 (1.9-4.0) LVEF 71% LVIDd 4.8 (3.5-5.7) LVIDs 2.9 (2.0-3.5) %FS 40% LVPWd 0.9 (0.6-1.2) Ao Diam 2.7 (2.0-3.7) 2 DIMENSIONAL ASSESSMENT: RIGHT ATRIUM: NORMAL LEFT ATRIUM: NORMAL RIGHT VENTRICLE: NORMAL LEFT VENTRICLE: NORMAL TRICUSPID VALVE: NORMAL MITRAL VALVE: NORMAL PULMONIC VALVE: NORMAL AORTIC VALVE: NORMAL PERICARDIAL EFFUSION: NONE AORTIC ROOT: NORMAL LEFT VENTRICULAR WALL MOTION: NORMAL. DOPPLER/COLOR FLOW: NORMAL COMMENTS: NORMAL 2D ECHO WITH DOPPLER. TECHNOLOGIST: ANDERSON GREENWOOD
--- NOTE | 2017-11-26 04:36 | DS ---
Date of Discharge: 11/25/2017 Consultants: None. Procedures: Cardiac stress test on 11/2017 shows no stress-induced ischemia. Discharge Diagnoses: 1.Chest pain, acute coronary syndrome ruled out. 2.Generalized anxiety disorder. 3.Breast cancer. Hospital Course: The patient is a 47-year-old female who comes in with dyspnea and some chest discom fort. Does have a history of breast cancer. Sees Dr. Valverde [facility]. The patient was admitted to the hospital for abnormal EKG which showed T-wave inversions. The patient had a phar macological stress test done which was nondiagnostic with Lexiscan. The cardiac stress test imaging showed no stress-induced ischemia. Her echocardiogram showed EF of 71%, otherwise, normal echo. The patient's chest pain was likely atypical, stemming from anxiety. The patient states that Ativan did improve her symptoms and requesting medication for her anxiety upon discharge. The patient otherwis e did well over the course of the hospital stay. Her labs remained stable. Troponins were negative. White cell count was 4.9 on admission. The patient is scheduled to see Dr. Valverde, her oncologis t next month. She was otherwise stable for discharge and sent home in a stable condition. Activity: As tolerated. Medications: As per medication reconciliation list. Followup: With primary care physician in 2 to 3 days. Follow up with oncologist Dr. Valverde as lary wharton. Return to ER for worsening condition. Activity: As tolerated. Diet: Heart healthy. Physical Examination: General: Awake, alert, oriented, no acute distress. CV: S1, S2. No murmurs. Regular rate and rhythm. Peripheral pulses present. Respiratory: Moving air well bilaterally. No wheezing or stridor. Gastrointestinal: Abdomen is soft, nontender, nondistended. Positive bowel sounds. Extremities: No clubbing, cyanosis, or edema. Neuro: Nonfocal. SA/MODL Voice ID: [id number] Report ID: [id number]
== END 2017-11-25 15:10 | disposition home or self-care (01) ==
LOC: ER 06:49 → ERHOLD 10:58 → 2ND 12:26
PROVIDERS: ADMIT Family Medicine; ATTEND Family Medicine
DX: R07.9 Chest pain, unspecified (principal); F41.9 Anxiety disorder, unspecified; C50.919 Malignant neoplasm of unspecified site of unspecified female breast
CPT/HCPCS: 36415; 71045; 78452; 80048; 80076; 81003; 81015; 83735; 83880; 84484; 85025; 85610; 87086; 87088; 93005; 93017; 93306; 99285; A9500; G0378; J2785; J3410

== ENCOUNTER 2017-11-27 18:12 | Emergency (ER) | payer OTHER ==
[2017-11-27] MEDS ORDERED: hydrOXYzine HCl 25 MG TAB ONE (18:51)
--- NOTE | 2017-11-27 18:55 | EDPHYS ---
Physician Documentation [facility] Name: Ena Vega Age: 47 yrs Sex: Female : 1970 Arrival Date: 11/27/2017 Time: 18:14 Bed 5 Private MD: None, None ED Physician Dusty Patel HPI: 11/27 18:39 This 47 yrs old Black Female presents to ER via Ambulatory with complaints of Anxiety. kb 18:39 The patient presents to the emergency department with anxiety, over unknown kb circumstances. Onset: The symptoms/episode began/occurred last week. Associated signs and symptoms: Pertinent positives; anxiety, throat irritation. Severity of symptoms: At their worst the symptoms were moderate in the emergency department the symptoms are unchanged. The patient has experienced similar episodes in the past, several times. The patient has not recently seen a physician. Pt states she is still having anxiety since the last few times she came. States "they gave me ativan in the emergency room and then xanax when I was admitted and those worked, but they didn't give me those to go home with." Educated that she needs to follow up with her PCP for anxiety medication and management. Has appt next week.. 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 - Social history:: Smoking status: Patient/guardian denies using tobacco. - Ebola Screening: : Patient negative for fever greater than or equal to 101.5 degrees Fahrenheit, and additional compatible Ebola Virus Disease symptoms Patient denies exposure to infectious person Patient denies travel to an Ebola-affected area in the 21 days before illness onset No symptoms or risks identified at this time. ROS: 18:38 Constitutional: Negative for fever, chills, and weight loss, Cardiovascular: Negative kb for chest pain, palpitations, and edema, Respiratory: Negative for shortness of breath, cough, wheezing, and pleuritic chest pain, Abdomen/GI: Negative for abdominal pain, nausea, vomiting, diarrhea, and constipation, MS/Extremity: Negative for injury and deformity, Skin: Negative for injury, rash, and discoloration, Neuro: Negative for headache, weakness, numbness, tingling, and seizure. 18:38 ENT: Positive for sore throat. 18:39 Psych: Positive for anxiety. kb Exam: 18:38 Head/Face: Normocephalic, atraumatic. Chest/axilla: Normal chest wall appearance and kb motion. Nontender with no deformity. No lesions are appreciated. Cardiovascular: Regular rate and rhythm with a normal S1 and S2. No gallops, murmurs, or rubs. Normal PMI, no JVD. No pulse deficits. Respiratory: Lungs have equal breath sounds bilaterally, clear to auscultation and percussion. No rales, rhonchi or wheezes noted. No increased work of breathing, no retractions or nasal flaring. Abdomen/GI: Soft, non-tender, with normal bowel sounds. No distension or tympany. No guarding or rebound. No evidence of tenderness throughout. Skin: Warm, dry with normal turgor. Normal color with no rashes, no lesions, and no evidence of cellulitis. MS/ Extremity: Pulses equal, no cyanosis. Neurovascular intact. Full, normal range of motion. Neuro: Awake and alert, GCS 15, oriented to person, place, time, and situation. Cranial nerves II-XII grossly intact. Motor strength 5/5 in all extremities. Sensory grossly intact. Cerebellar exam normal. Normal gait. 18:39 Constitutional: The patient appears alert, awake, anxious. kb Vital Signs: 18:24 BP 131 / 90; Pulse 94; Resp 17; Temp 98.4; Pulse Ox 99% on R/A; Weight 74.84 kg; Height aj 5 ft. 5 in. (165.10 cm); 18:36 BP 121 / 98; Pulse 92; Resp 18; Pulse Ox 99% on R/A; hj 18:24 Body Mass Index 27.46 (74.84 kg, 165.10 cm) MDM: 18:35 Patient medically screened. kb 18:39 Data reviewed: vital signs, nurses notes. Data interpreted: Pulse oximetry: on room air kb is 99 %. Interpretation: normal. Counseling: I had a detailed discussion with the patient and/or guardian regarding: the historical points, exam findings, and any diagnostic results supporting the discharge/admit diagnosis, the need for outpatient follow up, a family practitioner, to return to the emergency department if symptoms worsen or persist or if there are any questions or concerns that arise at home. Administered Medications: 18:38 Drug: hydrOXYzine 25 mg Route: PO; hj 18:48 Follow up: Response: No adverse reaction alee Disposition: 18:59 Co-signature as Attending Physician, Dusty Patel MD. rn Disposition: 11/27/17 18:54 Discharged to Home. Impression: Anxiety disorder, unspecified. - Condition is Stable. - Discharge Instructions: Panic Attacks, [id number]. - Medication Reconciliation Form, Thank You Letter, Antibiotic Education, Prescription Opioid Use form. - Follow up: Emergency Department; When: As needed; Reason: Worsening of condition. Follow up: Private Physician; When: 2 - 3 days; Reason: Recheck today's complaints, Continuance of care, Re-evaluation by your physician. Signatures: Dispatcher [employer] EDMS Sandrita Whalen, STELLA CARRION-Lidia Cuello RN RN aj Nieto, Roman, MD MD rn Joaquin, Henry, RN RN hj Corrections: (The following items were deleted from the chart) 18:39 18:38 Constitutional: This is a well developed, well nourished patient who is awake, kb alert, and in no acute distress. Head/Face: Normocephalic, atraumatic. Chest/axilla: Normal chest wall appearance and motion. Nontender with no deformity. No lesions are appreciated. Cardiovascular: Regular rate and rhythm with a normal S1 and S2. No gallops, murmurs, or rubs. Normal PMI, no JVD. No pulse deficits. Respiratory: Lungs have equal breath sounds bilaterally, clear to auscultation and percussion. No rales, rhonchi or wheezes noted. No increased work of breathing, no retractions or nasal flaring. Abdomen/GI: Soft, non-tender, with normal bowel sounds. No distension or tympany. No guarding or rebound. No evidence of tenderness throughout. Skin: Warm, dry with normal turgor. Normal color with no rashes, no lesions, and no evidence of cellulitis. MS/ Extremity: Pulses equal, no cyanosis. Neurovascular intact. Full, normal range of motion. Neuro: Awake and alert, GCS 15, oriented to person, place, time, and situation. Cranial nerves II-XII grossly intact. Motor strength 5/5 in all extremities. Sensory grossly intact. Cerebellar exam normal. Normal gait. kb 18:57 18:54 11/27/2017 18:54 Discharged to Home. Impression: Anxiety disorder, unspecified. hj Condition is Stable. Forms are Medication Reconciliation Form, Thank You Letter, Antibiotic Education, Prescription Opioid Use. Follow up: Emergency Department; When: As needed; Reason: Worsening of condition. Follow up: Private Physician; When: 2 - 3 days; Reason: Recheck today's complaints, Continuance of care, Re-evaluation by your physician. kb
--- NOTE | 2017-11-27 18:55 | ER ---
Nurse's Notes [facility] Name: Ena Vega Age: 47 yrs Sex: Female : 1970 Arrival Date: 11/27/2017 Time: 18:14 Bed 5 Private MD: None, None Diagnosis: Anxiety disorder, unspecified Presentation: 11/27 18:22 Presenting complaint: Patient states: DX with anxiety here and given RX. Patient aj reports anxiety is better but the medication prescribed is not helping as much as the medication she got here and she has already missed a day of work. Transition of care: patient was not received from another setting of care. Onset of symptoms was November 25, 2017. Risk Assessment: Do you want to hurt yourself or someone else? Patient reports no desire to harm self or others. Initial Sepsis Screen: Does the patient meet any 2 criteria? No. Patient's initial sepsis screen is negative. Does the patient have a suspected source of infection? No. Patient's initial sepsis screen is negative. Care prior to arrival: None. 18:22 Method Of Arrival: Ambulatory 18:22 Acuity: ROLANDO 5 Triage Assessment: 18:24 General: Appears in no apparent distress. comfortable, Behavior is anxious. Pain: aj Denies pain. Neuro: Level of Consciousness is awake, alert, obeys commands, Oriented to person, place, time, situation, Appropriate for age. Respiratory: Airway is patent Respiratory effort is even, unlabored, Respiratory pattern is regular, symmetrical. Derm: Skin is intact, is healthy with good turgor, Skin is pink, warm \T\ dry. normal. 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 - Social history:: Smoking status: Patient/guardian denies using tobacco. - Ebola Screening: : Patient negative for fever greater than or equal to 101.5 degrees Fahrenheit, and additional compatible Ebola Virus Disease symptoms Patient denies exposure to infectious person Patient denies travel to an Ebola-affected area in the 21 days before illness onset No symptoms or risks identified at this time. Screenin:35 Abuse screen: Denies threats or abuse. Denies injuries from another. Nutritional hj screening: No deficits noted. Tuberculosis screening: No symptoms or risk factors identified. Fall Risk None identified. Assessment: 18:46 Reassessment: pt refused strep test;. hj 18:46 General: Appears in no apparent distress. uncomfortable, Behavior is cooperative, hj appropriate for age, anxious. Pain: Complains of pain in throat. Neuro: Level of Consciousness is awake, alert, obeys commands, Oriented to person, place, time, situation, Appropriate for age. Cardiovascular: Capillary refill < 3 seconds Patient's skin is warm and dry. Respiratory: Airway is patent Respiratory effort is even, unlabored, Respiratory pattern is regular, symmetrical. GI: No signs and/or symptoms were reported involving the gastrointestinal system. : No signs and/or symptoms were reported regarding the genitourinary system. EENT: No signs and/or symptoms were reported regarding the EENT system. Derm: No signs and/or symptoms reported regarding the dermatologic system. Musculoskeletal: No signs and/or symptoms reported regarding the musculoskeletal system. Vital Signs: 18:24 BP 131 / 90; Pulse 94; Resp 17; Temp 98.4; Pulse Ox 99% on R/A; Weight 74.84 kg; Height aj 5 ft. 5 in. (165.10 cm); 18:36 BP 121 / 98; Pulse 92; Resp 18; Pulse Ox 99% on R/A; hj 18:24 Body Mass Index 27.46 (74.84 kg, 165.10 cm) ED Course: 18:14 Patient arrived in ED. mr 18:15 None, None is Private Physician. mr 18:24 Triage completed. aj 18:24 Arm band placed on left wrist. Patient placed in an exam room. aj 18:29 Arthur Bridges, MIKIE is Primary Nurse. hj 18:35 Sandrita Whalen FNP-C is PHCP. kb 18:35 Dusty Patel MD is Attending Physician. kb 18:35 Patient has correct armband on for positive identification. Bed in low position. Call hj light in reach. Side rails up X 1. 18:56 No provider procedures requiring assistance completed. Patient did not have IV access hj during this emergency room visit. Administered Medications: 18:38 Drug: hydrOXYzine 25 mg Route: PO; hj 18:48 Follow up: Response: No adverse reaction Outcome: 18:54 Discharge ordered by . gustavo 18:56 Discharged to home ambulatory. 18:56 Condition: stable 18:56 Discharge instructions given to patient, Instructed on discharge instructions, follow up and referral plans. Demonstrated understanding of instructions, follow-up care. 18:57 Patient left the ED. Signatures: Sandrita Whalen, MURALI-C MURALI-Lidia Cuello, RN RN Mckenna Gilbert Henry, RN RN
== END 2017-11-27 18:57 | disposition home or self-care (01) ==
LOC: ER 18:12
DX: F41.9 Anxiety disorder, unspecified (principal)
CPT/HCPCS: 99283

== ENCOUNTER 2018-08-09 17:34 | Emergency (ER) | payer OTHER ==
--- OUTSIDE RECORDS SUMMARY | 2018-08-09 17:37 | XMS REPORT ---
:1970 Author Organization [employer] Care Team Providers Name Role Phone Kerry Dawn Provider Role Unavailable Allergies No Known Allergies Problems Problem Type Condition Code Onset Dates Condition Status Problem History of breast cancer Z85.3 Active Problem S/P left mastectomy Z90.12 Active Problem Anxiety F41.9 Active Medications No Known Medications Results No Known Results Summary Purpose [employer] Submission
--- OUTSIDE RECORDS SUMMARY | 2018-08-09 17:37 | XMS REPORT ---
:1970 Author Organization [employer] Care Team Providers Name Role Phone Kerry Dawn Provider Role Unavailable Allergies, Adverse Reactions, Alerts Substance Reaction Event Type N.K.D.A. Info Not Available Non Drug Allergy Problems Problem Type Condition Code Onset Dates Condition Status Problem History of breast cancer Z85.3 Active Problem S/P left mastectomy Z90.12 Active Problem Anxiety F41.9 Active Assessment Anxiety F41.9 Active Medications Medication Code Code Instructions Start End Status Dosage System Date Date Super B Complex NDC 0 Active not defined HydrOXYzine HCl ND 70987908002 25 mg Orally Two Dec 24, Active 1 tablet times daily 2018 as needed for anxiety BusPIRone HCl ND 61563415615 5 MG Orally Active 1 tablet Three times a day Paxil ND 74539262192 20 mg Orally Jan 28, Active 1 tablet Once a day for 2018 in the anxiety morning Results No Known Results Summary Purpose [employer] Submission
[2018-08-09] MEDS ORDERED: HYDROCODONE/APAP 10/325 TAB ONE (18:30)
--- NOTE | 2018-08-09 19:04 | RAD REPORT ---
EXAM DESCRIPTION: RAD - Knee Right 2 View - 08/09/2018 6:46 pm CLINICAL HISTORY: Right knee pain FINDINGS: Limited two view series obtained Evaluation on the frontal view is limited as the knee is not extended. 10 millimeter bony density lies adjacent to the anterior superior aspect of the tibia. It may represe nt a degenerative calcification or avulsed bone fragment acute versus chronic. Osteoporosis. Possible lateral subluxation of patella. [place] view of the right knee would be helpful for better e valuation
--- NOTE | 2018-08-09 21:42 | EDPHYS ---
Physician Documentation [facility] Name: Ena Vega Age: 48 yrs Sex: Female : 1970 Arrival Date: 08/09/2018 Time: 17:40 Bed 15 Private MD: ED Physician Ashwin Adams HPI: 08/09 19:16 This 48 yrs old Black Female presents to ER via EMS with complaints of Right Knee Pain. pm1 21:58 The patient presents with pain. The complaints affect the right knee. Context: The pm1 problem was sustained at home, resulted from rolling over in bed, the patient is not able to bear weight, the patient is not able to ambulate, Problem is a result from a previous injury: No. Onset: The symptoms/episode began/occurred just prior to arrival. Modifying factors: The symptoms are alleviated by nothing. the symptoms are aggravated by nothing. Associated signs and symptoms: Pertinent negatives calf tenderness, numbness, swelling, tingling. Treatment prior to arrival includes: no previous treatment. Severity of symptoms: in the emergency department the symptoms are unchanged. The patient has not experienced similar symptoms in the past. The patient has not recently seen a physician. Patient was rolling over in bed then her right knee felt like it got stuck in place. 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 - Social history:: Smoking status: Patient/guardian denies using tobacco. - Ebola Screening: : No symptoms or risks identified at this time. ROS: 21:58 Constitutional: Negative for fever, chills, and weight loss, Eyes: Negative for injury, pm1 pain, redness, and discharge, ENT: Negative for injury, pain, and discharge, Neck: Negative for injury, pain, and swelling, Cardiovascular: Negative for chest pain, palpitations, and edema, Respiratory: Negative for shortness of breath, cough, wheezing, and pleuritic chest pain, Abdomen/GI: Negative for abdominal pain, nausea, vomiting, diarrhea, and constipation, Back: Negative for injury and pain. 21:58 Skin: Negative for injury, rash, and discoloration, Neuro: Negative for headache, weakness, numbness, tingling, and seizure. 21:58 MS/extremity: Positive for pain, of the right knee. Exam: 21:58 Constitutional: This is a well developed, well nourished patient who is awake, alert, pm1 and in no acute distress. Head/Face: Normocephalic, atraumatic. Eyes: Pupils equal round and reactive to light, extra-ocular motions intact. Lids and lashes normal. Conjunctiva and sclera are non-icteric and not injected. Cornea within normal limits. Periorbital areas with no swelling, redness, or edema. ENT: Nares patent. No nasal discharge, no septal abnormalities noted. Tympanic membranes are normal and external auditory canals are clear. Oropharynx with no redness, swelling, or masses, exudates, or evidence of obstruction, uvula midline. Mucous membranes moist. Neck: Trachea midline, no thyromegaly or masses palpated, and no cervical lymphadenopathy. Supple, full range of motion without nuchal rigidity, or vertebral point tenderness. No Meningismus. Chest/axilla: Normal chest wall appearance and motion. Nontender with no deformity. No lesions are appreciated. Cardiovascular: Regular rate and rhythm with a normal S1 and S2. No gallops, murmurs, or rubs. Normal PMI, no JVD. No pulse deficits. Respiratory: Lungs have equal breath sounds bilaterally, clear to auscultation and percussion. No rales, rhonchi or wheezes noted. No increased work of breathing, no retractions or nasal flaring. Abdomen/GI: Soft, non-tender, with normal bowel sounds. No distension or tympany. No guarding or rebound. No evidence of tenderness throughout. Back: No spinal tenderness. No costovertebral tenderness. Full range of motion. Skin: Warm, dry with normal turgor. Normal color with no rashes, no lesions, and no evidence of cellulitis. 21:58 Musculoskeletal/extremity: Extremities: grossly normal except: noted in the right knee: pain, tenderness, Circulation is intact in all extremities. Vital Signs: 17:42 BP 94 / 80; Pulse 85; Resp 18; Temp 98; Pulse Ox 97% ; Weight 78.02 kg; Height 5 ft. 5 bp in. (165.10 cm); 18:55 BP 111 / 89; Pulse 89; Resp 18; Temp 98.1(TE); Pulse Ox 99% on R/A; mh5 19:30 BP 128 / 69; Pulse 76; Resp 16 S; Temp 98(O); Pulse Ox 100% on R/A; ca1 20:30 BP 108 / 83; Pulse 67; Resp 16 S; Pulse Ox 100% on R/A; ca1 21:50 BP 100 / 81; Pulse 69; Resp 16; Temp 98(O); Pulse Ox 99% on R/A; ca1 17:42 Body Mass Index 28.62 (78.02 kg, 165.10 cm) bp Procedures: 21:58 Reduction: of the right knee, using Extension of right knee while pushing right patella pm1 medially , Immobilized with knee immobilizer post reduction. Patient tolerated well. Post reduction film - reveals normal alignment. MDM: 17:55 Patient medically screened. pm1 20:57 Data reviewed: vital signs. Data interpreted: Pulse oximetry: on room air is 100 %. pm1 Interpretation: normal. 21:28 Counseling: I had a detailed discussion with the patient and/or guardian regarding: the pm1 historical points, exam findings, and any diagnostic results supporting the discharge/admit diagnosis, radiology results, the need for outpatient follow up, for definitive care, a orthopedic surgeon, to return to the emergency department if symptoms worsen or persist or if there are any questions or concerns that arise at home. 08/09 18:45 Order name: Knee Right 2 View; Complete Time: 19:14 EDMS 08/09 20:32 Order name: Knee Right 3 View XRAY; Complete Time: 22:17 pm1 08/09 20:42 Order name: Knee Immobilizer; Complete Time: 22:05 pm1 08/09 20:42 Order name: Crutches; Complete Time: 22:05 pm1 Administered Medications: 18:16 Drug: Cocoa 10 mg-325 mg 1 tabs Route: PO; bp 19:09 Follow up: Response: No adverse reaction; Pain is decreased ca1 Disposition: 08/09/18 21:41 Discharged to Home. Impression: Other dislocation of right patella. - Condition is Stable. - Discharge Instructions: Crutch Use, Knee Immobilizer, Patellar Dislocation. - Prescriptions for Tylenol- Codeine #3 300-30 mg Oral Tablet - take 2 tablets by ORAL route every 6 hours As needed; 20 tablet. - Medication Reconciliation Form, Thank You Letter, Antibiotic Education, Prescription Opioid Use form. - Follow up: Emergency Department; When: As needed; Reason: Worsening of condition. Follow up: Kyle Ambriz MD; When: 2 - 3 days; Reason: Recheck today's complaints, Continuance of care, Re-evaluation by your physician. - Problem is new. - Symptoms have improved. Addendum: 08/11/2018 02:00 Co-signature as Attending Physician, Ashwin Adams MD. g s Signatures: Dispatcher [employer] EDWV Fady Gupta, INSTRUMENT TECHNOLOGIST INSTRUMENT TECHNOLOGIST pm1 Ashwin Adams MD MD Ethan Banda, RN RN bp Isis Delgadillo RN RN ca1 Corrections: (The following items were deleted from the chart) 08/09 18:46 18:00 Knee Right 3 View+RAD.RAD.BRZ ordered. EDWV EDWV 22:17 21:41 08/09/2018 21:41 Discharged to Home. Impression: Other dislocation of right ca1 patella. Condition is Stable. Forms are Medication Reconciliation Form, Thank You Letter, Antibiotic Education, Prescription Opioid Use. Follow up: Emergency Department; When: As needed; Reason: Worsening of condition. Follow up: Kyle Ambriz; When: 2 - 3 days; Reason: Recheck today's complaints, Continuance of care, Re-evaluation by your physician. Problem is new. Symptoms have improved. pm1
--- NOTE | 2018-08-09 21:42 | ER ---
Nurse's Notes [facility] Name: Ena Vega Age: 48 yrs Sex: Female : 1970 Arrival Date: 08/09/2018 Time: 17:40 Bed 15 Private MD: Diagnosis: Other dislocation of right patella Presentation: 08/09 17:40 Presenting complaint: EMS states: SPONTANEOUS R KNEE PAIN. Transition of care: patient bp was not received from another setting of care. Onset of symptoms was August 09, 2018 at 16:00. Risk Assessment: Do you want to hurt yourself or someone else? Patient reports no desire to harm self or others. Initial Sepsis Screen: Does the patient meet any 2 criteria? No. Patient's initial sepsis screen is negative. Does the patient have a suspected source of infection? No. Patient's initial sepsis screen is negative. Care prior to arrival: None. 17:40 Method Of Arrival: EMS: [facility] bp 17:40 Acuity: ROLANDO 4 bp Triage Assessment: 17:42 General: Appears in no apparent distress. uncomfortable, obese, Behavior is bp cooperative, appropriate for age, anxious. Pain: Complains of pain in right knee. EENT: No deficits noted. Neuro: Level of Consciousness is awake, alert, obeys commands, Oriented to person, place, time, situation, Appropriate for age. Cardiovascular: No deficits noted. Respiratory: Airway is patent Respiratory effort is even, unlabored, Respiratory pattern is regular, symmetrical. GI: No signs and/or symptoms were reported involving the gastrointestinal system. : No signs and/or symptoms were reported regarding the genitourinary system. Derm: No deficits noted. Musculoskeletal: Circulation, motion, and sensation intact. Range of motion: limited in right knee. 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 - Social history:: Smoking status: Patient/guardian denies using tobacco. - Ebola Screening: : No symptoms or risks identified at this time. Screenin:00 Abuse screen: Denies threats or abuse. Denies injuries from another. Nutritional ca1 screening: No deficits noted. Tuberculosis screening: No symptoms or risk factors identified. Fall Risk None identified. Assessment: 18:00 General: Appears in no apparent distress. comfortable, Behavior is calm, cooperative, ca1 appropriate for age. Pain: Complains of pain in right leg and right knee Pain currently is 9 out of 10 on a pain scale. Neuro: Level of Consciousness is awake, alert, obeys commands, Oriented to person, place, time, situation. Cardiovascular: Heart tones S1 S2 present Capillary refill < 3 seconds Patient's skin is warm and dry. Respiratory: Airway is patent Respiratory effort is even, unlabored, Respiratory pattern is regular, symmetrical, Breath sounds are clear bilaterally. GI: No deficits noted. No signs and/or symptoms were reported involving the gastrointestinal system. : No deficits noted. No signs and/or symptoms were reported regarding the genitourinary system. EENT: No deficits noted. No signs and/or symptoms were reported regarding the EENT system. Derm: Skin is intact, is healthy with good turgor, Skin is pink, warm \T\ dry. Musculoskeletal: Circulation, motion, and sensation intact. Capillary refill < 3 seconds, Range of motion: limited in right knee. 19:06 Reassessment: Patient appears in no apparent distress at this time. Patient and/or ca1 family updated on plan of care and expected duration. Pain level reassessed. Patient is alert, oriented x 3, equal unlabored respirations, skin warm/dry/pink. 20:08 Reassessment: Patient appears in no apparent distress at this time. Patient is alert, ca1 oriented x 3, equal unlabored respirations, skin warm/dry/pink. 20:46 Reassessment: Patient appears in no apparent distress at this time. Patient is alert, ca1 oriented x 3, equal unlabored respirations, skin warm/dry/pink. Patient states feeling better. 21:30 Reassessment: Demonstrated use of Crutches. Verbalized understanding. ca1 21:50 Reassessment: Patient appears in no apparent distress at this time. Patient and/or ca1 family updated on plan of care and expected duration. Pain level reassessed. Vital Signs: 17:42 BP 94 / 80; Pulse 85; Resp 18; Temp 98; Pulse Ox 97% ; Weight 78.02 kg; Height 5 ft. 5 bp in. (165.10 cm); 18:55 BP 111 / 89; Pulse 89; Resp 18; Temp 98.1(TE); Pulse Ox 99% on R/A; mh5 19:30 BP 128 / 69; Pulse 76; Resp 16 S; Temp 98(O); Pulse Ox 100% on R/A; ca1 20:30 BP 108 / 83; Pulse 67; Resp 16 S; Pulse Ox 100% on R/A; ca1 21:50 BP 100 / 81; Pulse 69; Resp 16; Temp 98(O); Pulse Ox 99% on R/A; ca1 17:42 Body Mass Index 28.62 (78.02 kg, 165.10 cm) bp ED Course: 17:40 Patient arrived in ED. bp 17:41 Triage completed. bp 17:46 Arm band placed on. bp 17:54 Fady Gupta NP is PHCP. pm1 17:54 Ashwin Adams MD is Attending Physician. pm1 18:00 No provider procedures requiring assistance completed. ca1 18:46 Knee Right 2 View In Process Unspecified. EDMS 18:52 Isis Delgadillo RN is Primary Nurse. ca1 18:55 Patient has correct armband on for positive identification. Bed in low position. Pulse mh5 ox on. NIBP on. 21:21 Knee Right 3 View XRAY In Process Unspecified. EDMS 21:30 Knee immobilizer applied on right knee. ca1 21:41 Kyle Ambriz MD is Referral Physician. pm1 22:15 Patient did not have IV access during this emergency room visit. ca1 Administered Medications: 18:16 Drug: [place] 10 mg-325 mg 1 tabs Route: PO; bp 19:09 Follow up: Response: No adverse reaction; Pain is decreased ca1 Outcome: 21:41 Discharge ordered by . pm1 22:15 Discharged to home via wheelchair, with family. ca1 22:15 Condition: stable 22:15 Discharge instructions given to patient, Instructed on discharge instructions, follow up and referral plans. medication usage, crutch walking, Demonstrated understanding of instructions, follow-up care, medications, Prescriptions given X 1. 22:17 Patient left the ED. ca1 Signatures: Dispatcher [employer] EDMS Fady Gupta NP CREW FOREMAN pm1 Trinity Schroeder 5 Ethan Banda RN RN bp Acob, Isis, RN RN ca1
--- NOTE | 2018-08-09 22:09 | RAD REPORT ---
EXAM DESCRIPTION: RAD - Knee Right 3 View - 08/09/2018 9:20 pm CLINICAL HISTORY: Right knee pain status post injury FINDINGS: The patella is high riding. If patient has clinical symptoms to suggest a patellar tendon injury MRI would be recommended Previous described lateral dislocation appears reduced
== END 2018-08-09 22:17 | disposition home or self-care (01) ==
LOC: ER 17:34
DX: S83.094A Other dislocation of right patella, initial encounter (principal); X58.XXXA Exposure to other specified factors, initial encounter; Y93.89 Activity, other specified; Y92.003 Bedroom of unspecified non-institutional (private) residence as the place of occurrence of the external cause; Z85.3 Personal history of malignant neoplasm of breast; Z90.12 Acquired absence of left breast and nipple
CPT/HCPCS: 99284

== ENCOUNTER 2019-08-06 05:57 | Day surgery (SDC) | payer OTHER ==
--- NOTE | 2019-07-30 09:13 | RAD REPORT ---
EXAM DESCRIPTION: RAD - Chest Pa And Lat (2 Views) - 07/30/2019 8:59 am CLINICAL HISTORY: preop Chest pain. COMPARISON: Chest Single View dated 11/24/2017; Chest Single View dated 04/24/2017 FINDINGS: The lungs are clear. The heart is normal in size. No displaced fractures. IMPRESSION: No acute or concerning finding suspected.
[2019-07-30 10:09] LABS: Basophils % 0.8 % (0-1.3); Hematocrit 33.8 % (36.0-45.0); Lymphocytes % 42.6 % (15.3-44.8); RBC Red Blood Cell Count 3.85 M/uL (3.86-4.86)
[2019-07-30 10:26] LABS: BUN Blood Urea Nitrogen 13 mg/dL (7-18); Bicarbonate 26 mmol/L (21-32); Glucose Level 95 mg/dL (74-106); Potassium 3.8 mmol/L (3.5-5.1); Sodium Level 142 mmol/L (136-145)
--- NOTE | 2019-07-30 11:50 | EKG ---
Test Date: 2019-07-30 Test Time: 07:35:25 Pickling Solution Maker: DICK MEASUREMENT RESULTS: Intervals: Rate: 62 OH: 164 QRSD: 78 QT: 444 QTc: 450 South Range: P: 58 OH: 164 QRS: 44 T: 57 INTERPRETIVE STATEMENTS: Normal sinus rhythm with sinus arrhythmia Nonspecific T wave abnormality Abnormal ECG Compared to ECG 11/24/2017 07:44:35 T-wave abnormality now present ST (T wave) deviation no longer present Possible ischemia no longer present Electronically Signed On 07-30-19 11:50:06 CDT by Garry Hilton
[2019-07-30 12:28] LABS: Platelet Estimate ADEQ; Urine White Blood Cell Casts OK
[2019-07-30 12:29] LABS: Blood Morphology Comment NOT SEEN (NOT SEEN)
--- OUTSIDE RECORDS SUMMARY | 2019-08-06 05:59 | XMS REPORT ---
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
--- OUTSIDE RECORDS SUMMARY | 2019-08-06 05:59 | XMS REPORT ---
:1970 Author Organization [employer] Care Team Providers Name Role Phone Barry Lenz Provider Role Unavailable Allergies, Adverse Reactions, Alerts Substance Reaction Event Type N.K.D.A. 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 Active Problem Internal derangement of right knee M23.91 Active Problem 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 Active Problem Dislocation of right patella, S83.004A Active initial encounter Problem Pain, joint, knee, right M25.561 Act garima Problem Patella rachel Q68.2 Active Problem Dislocation of right patella, S83.004D Active subsequent encounter Medications Medication Code Code Instructions Start End Status Dosage System Date Date Paxil [facility] 59623853302 20 mg Orally Jan 28, Active 1 table t Once a day for 2018 in the anxiety morning BusPIRone HCl [facility] 45509407995 5 MG Orally Active 1 tablet Three times a day Ibuprofen [facility] 98985738476 200 MG Orally Jan 18, Active 1 ta blet Three times a 2018 with food day or milk as needed Acetaminophen-C [facility] [address]-22 Active no t odeine #3 defined HydrOXYzine HCl [facility] [address]-89 Active no t defined Results No Known Results Summary Purpose eClinicalWorks Submission
--- OUTSIDE RECORDS SUMMARY | 2019-08-06 05:59 | XMS REPORT | Continuity of Care Document ---
:1970 Author Organization [facility] t Address [address] [place] [address] Care Team Providers Name Role Phone Unavailable Unavailable Unavailable Problems Condition Condition Condition Status Onset Resolution Last Treating Co mments Source Name Details Category Date Date Treatment Clinician Date History of History of Problem Active [facility] S/P left S/P left Problem [facility] Anxiety Anxiety Problem Active [facility] Dislocatio Dislocatio Problem Active [facility] of right n of right [facility] - patella, patella, [facility] initial initial l encounter encounter Outp ati ent Clinics Pain, Pain, Problem Active [facility] joint, joint, [facility] knee, knee, [facility] right right [facility] Dislocatio Dislocatio Problem Active [facility] of right n of right [facility] - patella, patella, [facility] subsequent subsequent l encounter encounter Outp ati ent Clinics Patella Patella Problem Active [facility]ics Internal Internal Problem Active [facility] derangemen derangemen [facility] - t of right t of right [facility] Flexion Flexion Problem Active [facility] contractur contractur [facility] - e of right e of right Me [facility] knee knee [facility] Allergies, Adverse Reactions, Alerts This patient has no known allergies or adverse reactions. Medications Ordered Filled Start Stop Current Ordering Indication Dosage Frequency Signature Comments Components Source Medication Medication Date Date Medication? Clinician (SIG) Name Name Acetaminoph Acetaminoph Yes Kerry not [facility] en-Codeine en-Codeine [facility] defined [facility] HydrOXYzine HydrOXYzine Yes Kerry not [facility] HCl HCl Millender defined [facility] Procedures This patient has no known procedures. Encounters Start End Encounter Admission Attending Care Care Encounter Source Date/Time Date/Time Type Type Clinicians Facility Department ID 2019-08-02 2019-08-02 Outpatient Horace Vut [id number] [facility] 14:53:00 14:53:00 [facility] 2019-08-02 2019-08-02 [facility] [id number] [facility] 08:50[facility] 08:50[facility] 2019-07-28 2019-07-28 Outpatient Horace Vut [id number] [facility] 16:39:00 16:39:00 [facility] 2019-07-28 2019-07-28 [facility] [id number] [facility] 15:20:00 15:20:00 [facility] 2019-07-26 2019-07-26 [facility] [id number] [facility] 18:49:00 18:49:00 [facility] 2019-07-14 2019-07-14 [facility] [id number] [facility] 13:52:00 13:52:00 [facility] 2019-07-14 2019-07-14 [facility] [id number] [facility] 12:09:00 12:09:00 [facility] 2019-07-13 2019-07-13 [facility] [id number] [facility] 14:00:00 14:00:00 [facility] 2019-02-26 2019-02-26 [facility] [id number] [facility] 11:52:00 11:52:00 [facility] 2019-01-18 2019-01-18 [facility] [id number] [facility] 08:00:00 08:00:00 [facility] 2018-11-17 2018-11-17 [facility] [id number] [facility] 14:00:00 14:00:00 [facility] 2018-11-10 2018-11-10 [facility] [id number] [facility] 08:16:00 08:16:00 [facility] 2018-09-21 2018-09-21 [facility] [id number] [address] 09:00:00 09:00:00 [facility] 2018-08-19 2018-08-19 [facility] [id number] 08:00:00 08:00:00 [facility] 2018-08-18 2018-08-18 [facility] [id number] [facility] 12:13:00 12:13:00 [facility] 2018-04-28 2018-04-28 [facility] [id number] 09:30:00 09:30:00 t [facility] 2018-02-09 2018-02-09 [facility] [id number] 09:02:00 09:02:00 [facility] Medicine Outpati ent Clinics Results This patient has no known results.
--- OUTSIDE RECORDS SUMMARY | 2019-08-06 06:00 | XMS REPORT ---
:1970 Author Organization [employer] Care Team Providers Name Role Phone Kerry Dawn Provider Role Unavailable Allergies, Adverse Reactions, Alerts Substance Reaction Event Type N.K.D.A. 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 Metabolic Panel (14) (CMP) ----Calcium 10.2 20190728 8.7-10.2 mg/dL ----Carbon Dioxide, 21 20190728 20-29 mmol/L Total ----ALT (SGPT) 18 20190728 0-32 IU/L ----Creatinine 0.57 20190728 0.57-1.00 mg/dL ----AST (SGOT) 21 20190728 0-40 IU/L ----eGFR If NonAfricn Am 108 20190728 >59 mL/min/1.73 ----Alkaline Phosphatase 59 20190728 39-117 IU/L ----eGFR If Africn Am 124 20190728 >59 mL/min/1.73 ----Bilirubin, Total 0.6 31295473 0.0-1.2 mg/dL ----BUN/Creatinine Ratio 18 04843014 9-23 ----A/G Ratio 1.6 35678732 1.2-2.2 ----Sodium 143 78969368 134-144 mmol/L ----Globulin, Total 2.9 13504223 1.5-4.5 g/dL ----Potassium 4.1 69133091 3.5-5.2 mmol/L ----Albumin 4.6 02577392 3.8-4.9 g/dL ----Glucose 91 54008383 65-99 mg/dL ----Chloride 102 94662574 96-106 mmol/L ----BUN 10 24185959 6-24 mg/dL ----Protein, Total 7.5 41116402 6.0-8.5 g/dL CBC With Differential/Platelet ----Basos 0 [id number] Not Estab. % ----MCV 89 44599270 79-97 fL ----Eos 4 06273512 Not Estab. % ----Hematocrit 34.5 57943658 34.0-46.6 % ----MCHC 33.6 16671562 31.5-35.7 g/dL ----Monocytes 9 15138570 Not Estab. % ----MCH 30.0 10040113 26.6-33.0 pg ----Lymphs 39 51372381 Not Estab. % ----Eos (Absolute) 0.1 73903314 0.0-0.4 x10E3/uL ----WBC 2.6 66046596 3.4-10.8 x10E3/uL L ----Monocytes(Absolute) 0.2 04465708 0.1-0.9 x10E3/uL ----Lymphs (Absolute) 1.0 72691339 0.7-3.1 x10E3/uL ----Hemoglobin 11.6 72778495 11.1-15.9 g/dL ----Neutrophils 1.3 26492963 1.4-7.0 x10E3/uL L (Absolute) ----RBC 3.87 44447955 3.77-5.28 x10E6/uL ----Immature Grans (Abs) 0.0 98681640 0.0-0.1 x10E3/uL ----Immature 0 [id number] Not Estab. % Granulocytes ----Neutrophils 48 [id number] Not Estab. % ----Baso (Absolute) 0.0 80113054 0.0-0.2 x10E3/uL ----RDW 15.3 53956193 11.7-15.4 % ----Platelets 231 [id number] 150-450 x10E3/uL PT and PTT ----INR 1.0 57605569 0.8-1.2 ----Prothrombin Time 10.7 03133235 9.1-12.0 sec ----aPTT 27 82513504 24-33 sec Magnesium, Serum ----Magnesium 1.9 75915966 1.6-2.3 mg/dL Summary Purpose eClinicalWorks Submission
[2019-08-06] MEDS ORDERED: Ringers Lactate 1,000 ML IV ONE ×2 (06:18→07:18)
[2019-08-06] MEDS ORDERED: CEFAZOLIN/SWI 1gm 1 GM/10 ML SYR ONE (06:18)
[2019-08-06] MEDS ORDERED: dexAMETHasone 10 MG/ML VIAL ONE ×2 (06:42→08:34)
[2019-08-06] MEDS ORDERED: NS 0.9% VIAL 20 ML ONE (06:42)
[2019-08-06] MEDS ORDERED: LIDOCAINE 1% MPF 5 ML VIAL ONE (06:42)
[2019-08-06] MEDS ORDERED: MIDAZOLAM HCL 2 MG/2 ML INJ ONE ×2 (06:43)
[2019-08-06] MEDS ORDERED: BUPIVACAINE 0.25% PF 10 ML VIAL ONE (06:43)
[2019-08-06] MEDS ORDERED: FENTANYL CITR 100 MCG/2 ML ONE (06:43)
[2019-08-06] MEDS ORDERED: BUPIVACAINE 0.25% PF 30 ML VIAL ONE (07:17)
[2019-08-06] MEDS ORDERED: propofoL 200 MG/20 ML VIAL IV ONE (07:36)
[2019-08-06] MEDS ORDERED: ROCURONIUM 50 MG/5 ML VIAL IV ONE (07:37)
[2019-08-06] MEDS ORDERED: LIDOCAINE 2% MPF 5 ML VIAL ONE (07:37)
[2019-08-06] MEDS ORDERED: ONDANSETRON 4 MG/2 ML VIAL ONE ×2 (08:34→09:27)
[2019-08-06] MEDS ORDERED: KETOROLAC 30 MG/ML INJ ONE (08:34)
[2019-08-06] MEDS: PROMETHAZINE INJ 25 MG/ML AMP ONE ×4 (09:12→10:13)
[2019-08-06] MEDS: MEPERIDINE HCL 25 MG/ML SYR ONE ×2 (09:24→09:35)
--- NOTE | 2019-08-06 09:31 | P.BOP ---
Preoperative diagnosis: right knee contracture, patellar instability Postoperative diagnosis: same Primary procedure: right knee manipulation under anesthesia Secondary procedure: right knee arthrscopic lysis of adhesions and posterior caspsular release Other procedure(s): right knee arthroscopic lateral release Estimated blood loss: 5 cc Specimen: none Findings: see dictation Anesthesia: General Complications: None Implants: none Fluids & blood products: per anesthesia record; TT: 54 mins @ 300 mmHg Transferred to: Recovery Room Condition: Good
[2019-08-06] MEDS: METOCLOPRAMIDE 10 MG/2mL INJ ONE ×2 (09:55→10:00)
[2019-08-06] MEDS ORDERED: HYDROMORPHONE HCL 1 MG/ML INJ ONE (10:14)
--- NOTE | 2019-08-06 10:29 | RAD REPORT ---
EXAM DESCRIPTION: RAD - Knee Right 2 View - 08/06/2019 9:46 am CLINICAL HISTORY: Right knee surgery FINDINGS: Postsurgical changes involve the right knee. No fracture or dislocation noted.
[2019-08-06 11:55] VITALS: BP 128/72; TEMP 98.2; O2SAT 100
--- NOTE | 2019-08-06 23:04 | OP ---
Date of Procedure: 08/06/2019 Surgeon: Barry Lenz MD Preoperative Diagnoses: 1. Right knee patellar instability. 2. Right knee fracture. Postoperative Diagnoses: 1. Right knee patellar instability. 2. Right knee fracture. Procedures Performed: 1. Right knee manipulation under anesthesia. 2. Right knee arthroscopic lysis of adhesions and posterior capsular release. 3. Right knee arthroscopic lateral release. Anesthesia: General endotracheal. Fluids: Per Anesthesia record. Estimated Blood Loss: Less than 10 cc. Tourniquet Time: 54 minutes at 300 mmHg. Indications For Procedure: Ms. Vega is a 49-year-old female with history of injury to her er right knee last year after sustaining a patellar dislocation and reduction in the ER. Patient was not compliant with physical therapy and home exercises and developed a flexion contracture of the right knee as well as stiffness. Patient failed further physical therapy and continued pain and difficulty with ambulation secondary to her knee pain and flexion contracture. I discussed with the patient at length risks and benefits associated with operative and nonoperative treatment. She expressed understanding and elected to proceed with operative treatment. Description Of Procedure: After informed consent was obtained, the patient was identified in the preoperative holding area. The right lower extremity was marked. Patient was then brought back to the PACU where she underwent an adductor canal block performed by anesthesia to aid with postoperative pain control. She was then taken back to the operating room, transferred to the operating table in supine fashion, placed under general endotracheal anesthesia. The right lower extremity was then examined. The patient had approximately 3200 degrees of range of motion. Gentle pressure was placed on the anterior aspect of the distal femur and pressure was brought posterior to anterior direction on the heel. There were some auditory pops in the knee and extension was improved to 10 degrees of almost full extension. The knee was also placed in gentle flexion and flexion improved to 120 degrees of flexion. The knee was then prepped and draped in the usual sterile fashion. A time-out was initiated. Correct patient and procedure were confirmed and identified. The patient did receive for preoperative prophylactic antibiotics. The right lower extremity was then exsanguinated using an Esmarch and the tourniquet was inflated to 300 mmHg. Standard anterior lateral anterior medial portals were created. The arthroscope was brought in via the anterior lateral portal. Diagnostic arthroscopy was performed. Patient was noted to have significant scar tissue within their patellofemoral joint. Using an arthroscopic shaver, lysis of adhesions was performed to clean out the patellofemoral compartment. There were no loose bodies found within the medial lateral gutters. Patient was also noted to have some scar within the intercondylar notch, as well as hyperemia and inflammatory synovium. A partial synovectomy was performed within the anterior compartment. The arthroscope was then brought in the medial compartment. There was overall pristine cartilage of the medial femoral condyle, medial tibial plateau. Medial meniscus was found to be stable to probe. The arthroscope was then brought in the intercondylar notch. The patient was noted to have an intact ACL and PCL. The arthroscope was brought in the lateral compartment and the patient was noted to have overall intact lateral meniscus and no significant chondromalacia of lateral tibial plateau, lateral femoral condyle. Anterior interval release was completed. Next, the arthroscope was brought in just medial to the PCL and then brought in the posterior medial compartment. Under direct visualization, a posterior medial portal was created and posterior medial capsular release was performed under direct visualization using a radiofrequency ablator as well as a meniscal biter with all instruments aimed anteriorly to minimize any risk of vascular injury. The wounds were then irrigated thoroughly with normal saline. The knee was again manipulated and full extension was achieved. She was placed in a hinged knee brace locked in extension. Portals were approximated using a 3-0 Monocryl and sterile dressings were applied. Tourniquet was let down. Patient was awakened and transferred to PACU in stable condition. Postoperative Plan: Physical Therapy will be consulted early next week for aggressive range of motion exercises. She will follow up in my clinic in 1 week for wound check. LEN/MODL Voice ID: [id number] Report ID: [id number] BOBBY
== END 2019-08-06 11:35 | disposition home or self-care (01) ==
LOC: OR 05:57
PROVIDERS: ATTEND Orthopaedic Surgery Sports Medicine
PROC: 0SNC4ZZ Release Right Knee Joint, Percutaneous Endoscopic Approach (ICD-10-PCS; 2019-08-06)
PROC: 0SBC4ZZ Excision of Right Knee Joint, Percutaneous Endoscopic Approach (ICD-10-PCS; 2019-08-06)
PROC: 0SNCXZZ Release Right Knee Joint, External Approach (ICD-10-PCS; 2019-08-06)
PROC: 0MNN4ZZ Release Right Knee Bursa and Ligament, Percutaneous Endoscopic Approach (ICD-10-PCS; principal; 2019-08-06 07:30)
DX: M23.51 Chronic instability of knee, right knee (principal); Z11.59 Encounter for screening for other viral diseases
CPT/HCPCS: 29873; 29884; 29875; 27570; 93005; 85025; 80048; 36415; 85610; 85730; 71046; 73560; J2704; J2765; J2550; J2250 ×2; J3010; J1100 ×2; J2175; J1170; J0690; J7120 ×2; J2405 ×2

== ENCOUNTER 2023-11-27 06:30 | Emergency (ER) | payer BC, OTHER ==
[2023-11-27] MEDS ORDERED: KETOROLAC 30 MG/ML INJ ONE (07:35)
--- NOTE | 2023-11-27 07:41 | EDPHYS ---
Physician Documentation [facility] Name: Ena Vega Age: 53 yrs Sex: Female : 1970 Arrival Date: 11/27/2023 Time: 06:30 Bed 5 Private MD: ED Physician Dusty Patel HPI: 11/26 07:38 This 53 yrs old Black Female presents to ER via Ambulatory with complaints of Toothache.rn 07:38 The patient presents with pain, swelling. Onset: The symptoms/episode began/occurred 2 rn week(s) ago. Modifying factors: The symptoms are alleviated by nothing. Severity of symptoms: At their worst the symptoms were moderate, in the emergency department the symptoms are unchanged. The patient has experienced similar episodes in the past. Patient reports poor dentition, recurrent dental infections, amoxicillin has worked for her in the past. No trauma. Reports left lower dental and gingival pain with swelling. No extension to face. No fever. No trouble eating or drinking.. Historical: - Allergies: 07:13 No Known Allergies; ss - Immunization history:: Client reports receiving the 2nd dose of the Covid vaccine. - Infectious Disease History:: Denies. - Social history:: Smoking status: Patient denies any tobacco usage or history of. - Family history:: not pertinent. - Hospitalizations: : No recent hospitalization is reported. ROS: 07:38 Constitutional: Negative for fever, chills, and weight loss, ENT: Positive for dental rn pain Exam: 07:38 Constitutional: This is a well developed, well nourished patient who is awake, alert, rn and in no acute distress. ENT: Poor dentition. Left lower gingival swelling without abscess or purulence. Buccal space normal without induration or fluctuance. Vital Signs: 07:12 BP 157 / 87; Pulse 66; Resp 16; Temp 98.6(TE); Pulse Ox 99% on R/A; Weight 90.72 kg; ss Height 5 ft. 5 in. ; Pain 7/10; 07:48 BP 145 / 80; Pulse 69; Resp 17; Pulse Ox 99% ; rs5 07:12 Body Mass Index 33.28 (90.72 kg, 165.1 cm) ss 07:12 Pain Scale: Adult ss MDM: 07:02 Patient medically screened. rn 07:38 Differential diagnosis: dental caries, gingivitis, dental abscess. Data reviewed: vital rn signs, nurses notes, and as a result, I will discharge patient. Special discussion: I discussed with the patient/guardian in detail that at this point there is no indication for admission to the hospital. It is understood, however, that if the symptoms persist or worsen the patient needs to return immediately for re-evaluation. Administered Medications: 07:38 Drug: Ketorolac IM 15 mg IM once Route: IM; Site: left deltoid; kj2 Disposition Summary: 11/27/23 07:40 Discharge Ordered Notes: Location: Home rn Problem: an ongoing problem rn Symptoms: are unchanged rn Condition: Stable rn Diagnosis - Dental caries, unspecified rn Followup: rn - With: Private Physician - When: As needed - Reason: Recheck today's complaints, Re-evaluation by your physician Discharge Instructions: - Discharge Summary Sheet rn - Dental Caries, Adult rn - Dental Pain rn Forms: - Medication Reconciliation Form rn - Antibiotic broomcorn thresher - Prescription Opioid Use rn - Patient Portal Instructions rn - Leadership Thank You Letter rn Prescriptions: - ondansetron 4 mg Oral Tablet,disintegrating - take 1 tablet ORAL route every 8 hours As needed; 10 tablet; Refills: 0, rn Product Selection Permitted - Augmentin 875-125 mg Oral Tablet - take 1 tablet ORAL route every 12 hours for 10 days; 20 tablet; Refills: 0, rn Product Selection Permitted - Tramadol 50 mg Oral Tablet - take 1 tablet ORAL route every 8 hours as needed; 12 tablet; Refills: 0, rn Product Selection Permitted Signatures: Dusty Patel MD MD rn Blanchard, Shelby, RN RN ss Jordan, Krystal RN RN kj2
--- NOTE | 2023-11-27 07:41 | ER ---
Nurse's Notes [facility] Name: Ena Vega Age: 53 yrs Sex: Female : 1970 Arrival Date: 11/27/2023 Time: 06:30 Bed 5 Private MD: Diagnosis: Dental caries, unspecified Presentation: 11/26 07:12 Chief complaint: Patient states: Dental pain x 2 weeks. Denies fever. Coronavirus ss screen: Client denies travel out of the [place] in the last 14 days. Ebola Screen: Patient denies exposure to infectious person. Patient denies travel to an Ebola-affected area in the 21 days before illness onset. Initial Sepsis Screen: Does the patient meet any 2 criteria? No. Patient's initial sepsis screen is negative. Does the patient have a suspected source of infection? No. Patient's initial sepsis screen is negative. Risk Assessment: Do you want to hurt yourself or someone else? Patient reports no desire to harm self or others. Onset of symptoms was October 2023. 07:12 Method Of Arrival: Ambulatory ss 07:12 Acuity: ROLANDO 3 ss Triage Assessment: 07:13 General: Appears in no apparent distress. comfortable, Behavior is calm, cooperative. ss Neuro: Level of Consciousness is awake, alert, obeys commands. Respiratory: Respiratory effort is even, unlabored, Respiratory pattern is regular, symmetrical. 07:13 EENT: Reports pain. rs5 Historical: - Allergies: 07:13 No Known Allergies; ss - Immunization history:: Client reports receiving the 2nd dose of the Covid vaccine. - Infectious Disease History:: Denies. - Social history:: Smoking status: Patient denies any tobacco usage or history of. - Family history:: not pertinent. - Hospitalizations: : No recent hospitalization is reported. Screenin:00 [facility] ED Fall Risk Assessment (Adult) History of falling in the last 3 months, rs5 including since admission No falls in past 3 months (0 pts) Confusion or Disorientation No (0 pts) Intoxicated or Sedated No (0 pts) Impaired Gait No (0 pts) Mobility Assist Device Used No (0 pt) Altered Elimination No (0 pt) Score/Fall Risk Level 0 - 2 = Low Risk Oriented to surroundings, Maintained a safe environment. Abuse screen: Denies threats or abuse. Nutritional screening: No deficits noted. Tuberculosis screening: No symptoms or risk factors identified. Assessment: 07:00 General: Appears in no apparent distress. uncomfortable, Behavior is calm, cooperative. rs5 Pain: Complains of pain in left lower jaw Pain currently is 7 out of 10 on a pain scale. Quality of pain is described as aching, Is continuous. Neuro: Level of Consciousness is awake, alert, obeys commands, Oriented to person, place, time, situation. Cardiovascular: Patient's skin is warm and dry. Respiratory: Airway is patent Respiratory effort is even, unlabored, Respiratory pattern is regular, symmetrical. GI: Abdomen is round non-distended, Abd is soft and non tender X 4 quads. : No signs and/or symptoms were reported regarding the genitourinary system. EENT: Reports pain in left lower jaw. Derm: Skin is intact, Skin is dry, Skin is normal. Musculoskeletal: Range of motion: intact in all extremities. Vital Signs: 07:12 BP 157 / 87; Pulse 66; Resp 16; Temp 98.6(TE); Pulse Ox 99% on R/A; Weight 90.72 kg; ss Height 5 ft. 5 in. ; Pain 7/10; 07:48 BP 145 / 80; Pulse 69; Resp 17; Pulse Ox 99% ; rs5 07:12 Body Mass Index 33.28 (90.72 kg, 165.1 cm) ss 07:12 Pain Scale: Adult ss ED Course: 06:35 Patient arrived in ED. gm2 07:00 Patient has correct armband on for positive identification. Placed in gown. Bed in low rs5 position. Call light in reach. Side rails up X2. 07:00 No provider procedures requiring assistance completed. rs5 07:01 Dusty Patel MD is Attending Physician. rn 07:13 Triage completed. ss 07:13 Arm band placed on right wrist. ss 07:23 Shawanda Frey, MIKIE is Primary Nurse. kj2 07:48 Provided Education on: discharge instructions . rs5 07:48 Patient did not have IV access during this emergency room visit. rs5 Administered Medications: 07:38 Drug: Ketorolac IM 15 mg IM once Route: IM; Site: left deltoid; kj2 Medication: 07:00 VIS not applicable for this client. rs5 Outcome: 07:40 Discharge ordered by . rn 07:48 Discharged to home ambulatory, 5 07:48 Condition: stable rs5 07:48 Discharge instructions given to patient, family, Instructed on discharge instructions, follow up and referral plans. medication usage, Demonstrated understanding of instructions, follow-up care, medications, Prescriptions given X 2, 07:50 Patient left the ED. kj2 Signatures: Dusty Patel MD MD rn Blanchard, Shelby, RN RN ss Sotelo, Ricky, RN RN 5 Mary Anne Smith 2 Shawanda Frey RN RN kj2
[2023-11-27 21:05] VITALS: BP 157/87; TEMP 98.6; O2SAT 99
== END 2023-11-27 07:50 | disposition home or self-care (01) ==
LOC: ER 06:30
DX: K02.9 Dental caries, unspecified (principal)
CPT/HCPCS: 96372; 99284